=== PATIENT | male | born 1950 | race Caucasian/White ===

== ENCOUNTER → 2024-03-25 08:20 | Outpatient (REF) | payer BC, SELFPAY | LOC: HWRCS 08:20 | PROVIDERS: ATTENDING PHYSICIAN Internal Medicine Cardiovascular Disease; FAMILY PHYSICIAN Internal Medicine | DX: I35.0 Nonrheumatic aortic (valve) stenosis (principal) | CPT/HCPCS: 93306 ==

== ENCOUNTER → 2024-04-05 06:28 | Day surgery (SDC) | payer BC, SELFPAY | LOC: GI 06:28 | PROVIDERS: ATTENDING PHYSICIAN Internal Medicine Gastroenterology | DX: Z12.11 Encounter for screening for malignant neoplasm of colon (principal); D12.2 Benign neoplasm of ascending colon; K57.30 Diverticulosis of large intestine without perforation or abscess without bleeding; K64.8 Other hemorrhoids; Z79.01 Long term (current) use of anticoagulants | CPT/HCPCS: 45385; 88305 ==

== ENCOUNTER 2024-04-26 22:36 | Emergency (ER) | payer BC, SELFPAY ==
[2024-04-26 22:38] VITALS: BP 174/95
--- NOTE | 2024-04-27 01:55 | ED.GENMED ---
History of Present Illness
General
Chief Complaint: Skin Surface Trauma
Source: patient and spouse
Exam Limitations: none
Time Seen by Provider: 04/27/24 01:20
Nursing documentation reviewed up to this point in time: agreed with
History of Present Illness
History of Present Illness:
73-year-old male with past medical history of hypertension hyperlipidemia presenting to the emergency department today with concerns of a cut to his left middle finger that happened earlier in the day and has had intermittent bleeding secondary to
him taking Eliquis for paroxysmal atrial fibrillation. Denies additional concerns lightheadedness or large volume of bleeding.
Review of Systems
Review of Systems
Allergies reviewed?: Yes
All Other Systems: ROS reviewed and negative except as documented in HPI and ROS
Phy Exam
Physical Exam
Physical Exam:
GENERAL: Alert , in no apparent distress
EYE: pupils equal and reactive
NECK: Supple, no significant adenopathy.
ENT: o/p clr, mmm.
CARDIAC: Regular rate and rhythm .
LUNGS: Clear breath sounds bilaterally, no acute respiratory distress, no wheezes/rales/rhonchi
ABDOMEN: Soft, without focal tenderness, no r/g, no cvat
NEUROLOGICAL: Alert and oriented, no focal neuro deficits
SKIN: 1 cm laceration to the distal left. No active bleeding. No nailbed involvement warm and dry, skin intact.
MUSCULOSKELETAL: No edema, well perfused.
PSYCH: Normal and appropriate interaction.
Course
Orders/Labs/Results
Orders:
Orders
04/27/24 01:55
Tetanus/Diphth/Acelpertussis [Adacel] 0.5 ml IM .ONCE ONE
Vital Signs
Initial and Last Documented VS:
Initial Vital Signs
Temp Pulse Resp BP Pulse Ox
98.0 F 69 19 174/95 94
04/26/24 22:38 04/26/24 22:38 04/26/24 22:38 04/26/24 22:38 04/26/24 22:38
Last Documented Vital Signs
Temp Pulse Resp BP Pulse Ox
98.0 F 69 19 174/95 94
04/26/24 22:38 04/26/24 22:38 04/26/24 22:38 04/26/24 22:38 04/26/24 22:38
Procedures
Laceration Closure
Left Distal Third Finger:
Status of Wound: clean
Size of Wound in cm: 1
Description of Wound Edges: sharp
Preparation: cleaned with saline
Anesthesia: 1% Lidocaine and Digital-Regional
Revision/Debridement: routine- no revision and irrigate-direct pressure
Wound exploration: explored to base- no FB and no tendon involvement
Type of Closure: single layer closure
Skin Closure Material: 4-0 chromic gut
Number of sutures: 2
MDM/Problems Addressed
MDM/Problems Addressed:
73-year-old male presenting to the emergency department today with concerns of a small laceration to the distal. His concern is that the bleeding has been ongoing since the laceration occurred secondary to being on Eliquis. Concerning this was
this was cleaned thoroughly and sutured with 2 stitches to keep this in place and not continually bleed.
*Critical Care Note
Total Time (30-74mins, 75-104mins- exclusive of procedures): Not Applicable
ED Attending Note
-
Portions of this chart may have been created with voice recognition software.� Occasional wrong word or��sound alike� substitutions may have occurred due to the inherent limitations of voice recognition software.
Discharge Plan
Departure
Patient Disposition: Home (Routine Discharge)
Date of Disposition: 04/27/24
Time of Disposition: 01:56
Patient with high blood pressure during this ER visit?: No
Condition: Good
Covid-19: Not Applicable
Discharge Problem:
Finger laceration
Instructions: Laceration Repair With Stitches (DC)
Prescriptions:
No Action
atorvastatin 10 mg Tablet
10 mg PO DAILY
ramipril 5 mg Capsule
5 mg PO DAILY
metoprolol tartrate 25 mg tablet
25 mg PO BID Qty: 60 0RF
Eliquis 5 mg tablet
5 mg PO BID Qty: 60 0RF
Referrals:
Abiodun Xiong I., DO [Family Provider] -
Activity Restrictions/Additional Instructions:
You came to the emergency department today for concerns of a laceration to your left middle finger. This was sutured with 2 absorbable stitches. Please keep the area clean and covered. Return to the emergency department for any worsening, new or
concerning symptoms.
Discharge Date and Time
Print Language: BULGARIAN
[2024-04-27] MEDS: ADACEL 0.5 ML IM (02:05)
== END 2024-04-27 02:39 | disposition home or self-care (01) ==
LOC: EMR 22:36
PROVIDERS: EMERGENCY PHYSICIAN Emergency Medicine; FAMILY PHYSICIAN Internal Medicine
DX: S61.213A Laceration without foreign body of left middle finger without damage to nail, initial encounter (principal); W45.8XXA Other foreign body or object entering through skin, initial encounter; I10 Essential (primary) hypertension; I48.0 Paroxysmal atrial fibrillation; Z79.01 Long term (current) use of anticoagulants; E78.5 Hyperlipidemia, unspecified; Z23 Encounter for immunization
CPT/HCPCS: 99282; 12001; 90471; 90715

== ENCOUNTER → 2024-09-03 08:21 | Outpatient (REF) | payer MEDICARE, OTHER, SELFPAY | LOC: RCS 08:21 | PROVIDERS: ATTENDING PHYSICIAN Internal Medicine Cardiovascular Disease; FAMILY PHYSICIAN Internal Medicine | DX: I35.0 Nonrheumatic aortic (valve) stenosis (principal) | CPT/HCPCS: 93306 ==

== ENCOUNTER 2024-09-20 06:30 | Day surgery (SDC) | payer MEDICARE, OTHER, SELFPAY ==
[2024-09-20] VITALS (11 sets, daily range): BP systolic 128–164; BP diastolic 74–96; BMI 28.1
[2024-09-20 07:13] LABS: Hematocrit 38.6 % (39.0-52.0); Hemoglobin 13.3 g/dL (13.0-18.0); Mean Corp Hgb Conc. 34.5 g/dL (33.0-37.0); Mean Corpuscular Hgb 32.7 pg (27.0-31.0); Mean Corpuscular Volume 94.8 fL (80.0-94.0); Mean Platelet Volume 9.7 fL (7.4-10.4); Platelet Count 171 10^3/uL (130-400); Red Blood Cell Count 4.07 10^6/uL (4.70-6.10); Red Cell Dist. Width 13.2 % (11.5-14.5); White Blood Cell Count 5.5 10^3/uL (4.8-10.8)
[2024-09-20] MEDS: LOW STRENGTH ASPIRIN 81 MG PO (07:20)
[2024-09-20 07:28] LABS: ALT (SGPT) 28 U/L (0-50); AST (SGOT) 26 U/L (17-59); Albumin 4.3 g/dl (3.5-5.0); Alkaline Phosphatase 57 U/L (38-126); Blood Urea Nitrogen 18 mg/dl (9-20); Calcium 9.3 mg/dl (8.4-10.2); Carbon Dioxide 28 mmol/L (22-30); Chloride 104 mmol/L (98-107); Estimated Creatinine Clearance 81 ml/min; Glucose 102 mg/dl (70-99); Potassium 4.2 mmol/L (3.5-5.1); Sodium 142 mmol/L (135-145); Total Bilirubin 0.7 mg/dl (0.2-1.3); Total Protein 6.7 g/dl (6.3-8.2); eGFR > 60.00
[2024-09-20 08:41] LABS: ACT-LR - POC 240 Seconds (116-155)
--- NOTE | 2024-09-20 09:16 | ITS.CL.CATH ---
Engine Installer - Catheterization
Cardiac Catheterization
Procedure Report:
LEFT HEART CATHETERIZATION
Date of Procedure: September 20, 2024
Referring: Dr. Saurav Dumont
PROCEDURES:
1. Coronary angiography
2. Hemodynamic assessment of LAD with a [place] Omni wire. The iFR measures above the ischemic threshold.
INDICATION: Severe symptomatic aortic stenosis
ACCESS: Right radial artery, 6 Somali sheath
HEMODYNAMICS : (mmHg)
AO (s/d) : 116/73
CORONARY FINDINGS
DOMINANCE: Left
LEFT MAIN: Normal
LEFT ANTERIOR DESCENDING: The LAD arises normally from the left main and runs in the anterior interventricular groove. The first diagonal branch arises from the proximal one third of the LAD and has a 70% ostial stenosis. The LAD has a 40%
stenosis near the origin of the diagonal branch and the remainder of the LAD has only minor irregularities. The distal vessel wraps completely around the apex. The iFR in the LAD measured above the ischemic threshold at 0.96, 0.96, and 0.95
CIRCUMFLEX: The circumflex is a large-caliber dominant vessel supplying 2 small obtuse marginal branches, a large third obtuse marginal branch as it continues in the AV groove to supply a large posterolateral branch and PDA
RIGHT CORONARY ARTERY: Nondominant
HEMODYNAMIC ASSESSMENT OF THE LAD WITH A V[place]O OMNI WIRE: The origin of the left main was cannulated with a 6 Fr JL 4 guide catheter. Intravenous heparin was administered and the ACT was followed during the procedure. Two hundred micrograms of
intracoronary nitroglycerin was given through the guide catheter. A [place] Omni wire was advanced to the guide catheter tip and normalized to guide catheter pressure. The Omni wire was then carefully manipulated across the stenosis in the
stenosis in the mid LAD near the origin of the first diagonal branch and the iFR serially measured above the ischemic threshold at 0.96, 0.96, and 0.95. The Omni wire was withdrawn to the guide catheter and the resting Pd/Pa measured 1.0 confirming
no baseline drift
RADIATION SUMMARY: Fluoro Time (min): 5.9, Dose (mGy): 394, DAP (Gy.cm2) : 29.3
Closure Device: TR band
CONCLUSIONS
1. Coronary artery disease: The only angiographically significant stenosis was at the origin of a small first diagonal branch where a 70% stenosis was noted. The major epicardial coronary arteries had no significant coronary disease including the
LAD with the iFR measuring serially above the ischemic threshold and the dominant circumflex.
RECOMMENDATIONS
1. Continued medical management and risk factor modification. I would increase atorvastatin from 10 mg to 40 mg with goal LDL closer to 70mg/dl given coronary artery disease near the ostia of the first diagonal branch (medical therapy)
Copy to: Dr. Saurav Dumont
--- NOTE | 2024-09-20 11:39 | CONSULT.STRU ---
Consultation
-
Date/Time Consultation Requested: 09/20/2024
Date/Time Consultation Performed: 09/20/2024
Requesting Provider: Dr. Wilfredo Mello
Performing Provider: REINIER Haro
Reason for Consultation: Aortic stenosis/ TAVR evaluation
Patient History
Physicians
Family Physician: Dr. Xiong
Outpatient Sand Mill Operator Core Sand: Dr. Dumont
Primary Sand Mill Operator Core Sand: Dr. Dumont
History of Present Illness
Mr. Georges is a very pleasant 74yo male who remains very active. He states over the past year after walking about 15 minutes he begins to experience DRISCOLL and chest pain. This resolves with rest. His echocardiogram on 09/06/2024 was notable for EF:
55-60%, AV PG/M/55, SHANIQUA: 0.6, no AI, mild MR, mild TR. Cardiac cath today showed the only angiographically significant stenosis was at the origin of a small first diagonal branch where a 70% stenosis was noted. The major epicardial coronary
arteries had no significant coronary disease including the LAD with the iFR measuring serially above the ischemic threshold and the dominant circumflex.
Reviewed the pathophysiology of aortic stenosis with the patient.. Explained the treatment options of SAVR and TAVR. Explained the TAVR evaluation process including follow up BMP, CT TAVR scan, CT surgery consult and Heart Team discussion. Provided
with script for BMP next week, script and appointment for CT TAVR, Consult appointment with Dr. Cruz and a copy of the TAVR education booklet with contact information. Allowed for and answered questions.
Past Medical History
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
Past Surgical History
Past Surgical History: Tonsilectomy and Other (vocal cord biopsy)
Dental History
Regular dental care- Dr. Saleh ([facility])
Family History
Mother: at Age (92yo)
Father: at Age (94yo)
Social History
Alcohol: Daily (wine/cocktail)
Drug: None
Tobacco: Former Smoker (quit 2013)
Personal:
Living: With Spouse
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
Allergies
Allergy/AdvReac Type Severity Reaction Status Date / Time
No Known Allergies Allergy Verified 09/20/24 07:09
Home Medications
�Medication �Instructions �Recorded �Confirmed �Type
apixaban 5 mg tablet (Eliquis) 5 mg PO BID #60 tabs 06/02/23 09/20/24 Rx
metoprolol tartrate 25 mg tablet 25 mg PO BID #60 tabs 06/02/23 09/20/24 Rx
ramipril 5 mg capsule 5 mg PO DAILY 06/02/23 09/20/24 History
Eu Natural Uric Acid Purge 1 cap PO BID 09/20/24 09/20/24 History
ascorbic acid (vitamin C) 500 mg 500 mg PO BID 09/20/24 09/20/24 History
tablet (Vitamin C)
atorvastatin 40 mg tablet 40 mg PO DAILY #90 tabs 09/20/24 Rx
cholecalciferol (vitamin D3) 50 50 mcg PO DAILY 09/20/24 09/20/24 History
mcg (2,000 unit) tablet (Vitamin
D3)
krill 500 mg-omega-3 110 mg-dha 28 1 cap PO DAILY 09/20/24 09/20/24 History
mg-epa 60 [id number] capsule
STS%
STS %: 0.777%
Review of Systems
-
History Source: Patient
General: Reports No Symptoms
HEENT: Reports No Symptoms
Respiratory: Reports DRISCOLL; Denies Cough, Asthma or PND
Cardiac: Reports Chest Pain, CAD and Palpitations (h/o afib); Denies Edema
Abdomen/GI: Reports Reflux (occasional); Denies Abdominal Pain, Indigestion, Nausea or Vomiting
: Denies No Symptoms, Dysuria or Hematuria
Musculoskeletal: Reports No Symptoms; Denies Joint Pain or Edema
Skin: Reports No Symptoms
Neurological: Reports No Symptoms; Denies CVA, TIA, Headaches or Syncope
Vascular: Reports No Symptoms
Physical Exam
Vital Signs
Temp 97.3 F 09/20/24 06:35
Temp route: Temporal 09/20/24 06:35
Pulse 52 09/20/24 09:30
Resp Rate 10 09/20/24 09:30
Blood pressure 128/76 09/20/24 09:30
Blood pressure extremity used: Right upper arm 09/20/24 06:35
Position: Sitting 09/20/24 06:35
MAP (cuff-Fernanda Monitor) 88 09/20/24 09:30
SaO2 96 09/20/24 09:30
Oxygen Mode of Delivery Room air 09/20/24 06:35
Can the patient verbally communicate their pain? Yes 09/20/24 09:00
Actual Weight 93.8 kg 09/20/24 06:41
Body Mass Index (BMI) 28.1 09/20/24 06:41
Labs
09/20/24 07:07
09/20/24 07:07
Diagnostic Studies
Echocardiogram 09/06/2024:
CONCLUSIONS
1. Left ventricle: Normal size and function with an estimated ejection
fraction of 55-60%. Mild concentric hypertrophy. Stage I diastolic
dysfunction.
2. Right ventricle: Mild right ventricular hypertrophy
3. Atria: Normal
4. Mitral valve: Mild mitral regurgitation
5. Aortic valve: Severe aortic stenosis. The aortic leaflets are heavily
calcified. The peak and mean gradients are 89 and 55 mmHg respectively using
an LVOT diameter of 2.3 cm. The estimated aortic valve area is 0.6 cm2. No
aortic insufficiency
6. Tricuspid valve: Mild tricuspid regurgitation. The estimated pulmonary
artery systolic pressures are 23 mmHg
7. When compared to the most recent echocardiogram from 03/25/2024, the aortic
valve gradients have increased.
Indications:
NONRHEUMATIC AORTIC (VALVE) STENOSIS
Rhythm: Sinus
Portable Study: No
Technical Quality: Good
Contrast: None
BP: 40 / 84
PROCEDURE
A complete Transthoracic Echocardiogram was performed utilizing two-dimensional
evaluation with color flow and spectral Doppler analysis.
FINDINGS
Left Ventricle
Normal left ventricular chamber size. Normal left ventricular systolic
function. Normal regional wall motion. Mild concentric left ventricular
hypertrophy. Left ventricular ejection fraction is 55-60% by Talley's method
of discs. Stage I diastolic dysfunction suggestive of abnormal relaxation.
Right Ventricle
Mild RVH. Normal right ventricular size and function.
Left Atrium
Indexed LA volume is within normal range (15-34 mL/m2).
Right Atrium
Normal right atrium.
Mitral Valve
Thickened mitral valve leaflets. Mitral annular calcification. Mitral valve
opens normally. Mild mitral regurgitation.
Aortic Valve
Thickened aortic valve with restricted leaflet motion. Severe aortic stenosis.
Peak/mean gradients obtained from the right sternal border across the aortic
valve are 89/55 mmHg respectively. Using an LVOT diameter of 2.3 cm., the
aortic valve by the Continuity equation is calculated at 0.6 cm2. No aortic
regurgitation is seen.
Tricuspid Valve
Tricuspid valve opens normally. Mild tricuspid regurgitation. Estimated
pulmonary artery pressure of 23 mmHg assuming a right atrial pressure of 3
mmHg.
Pulmonic Valve
Pulmonic valve opens normally. Trace pulmonic regurgitation.
Pericardium\\Pleura
No pericardial effusion.
Aorta
Mildly dilated aortic root with Sinus of Valsalva measuring 3.9 cm.
Other Finding
The IVC is of normal size and demonstrates normal respiratory variation.
Interatrial septum is intact with no evidence of shunting by color flow
Doppler. No intracardiac mass or thrombus formation seen.
MEASUREMENTS (Male / Female) Normal Values
2D ECHO
LV Diastolic Diameter PLAX 4.3 cm 4.2 - 5.9 / 3.9 - 5.3 cm
LV Systolic Diameter PLAX 2.7 cm
IVS Diastolic Thickness 1.3 cm 0.6 - 1.0 / 0.6 - 0.9 cm
LVPW Diastolic Thickness 1.3 cm 0.6 - 1.0 / 0.6 - 0.9 cm
LV Relative Wall Thickness 0.6
LVOT Diameter 2.3 cm
Aortic Root Diameter 2.9 cm
LA Systolic Diameter LX 3.7 cm 3.0 - 4.0 / 2.7 - 3.8 cm
LV Ejection Fraction MOD BP 59.6 % >= 55 %
LV Stroke Volume MOD BP 52.6 cm3
LV Cardiac Index MOD BP 1217.3 cm3/min
LV Stroke Volume MOD 4C 52.6 cm3
LV Stroke Volume 4C AL 56.2 cm3
LV Stroke Volume MOD 2C 43.4 cm3
LV Stroke Volume 2C AL 45.9 cm3
LA Area 4C View 15.5 cm2 <= 20 cm2
LA Length 4C 4.8 cm
LA Volume 38.1 cm3 18 - 58 / 22 - 52 cm3
LA Volume Index 29.6 cm3/m2 16 - 34 cm3/m2
Aorta at Sinotubular Diameter 2.6 cm
Ascending Aorta Diameter 3.3 cm
Aortic Arch Diameter 2.2 cm
Aorta at Sinuses Diameter 3.9 cm
M-MODE
AV Cusp Separation MM 1.0 cm
TAPSE 2.4 cm
DOPPLER
AV Peak Velocity 472.0 cm/s
AV Peak Gradient 89.1 mmHg
AV Mean Gradient 56.0 mmHg
AV Velocity Time Integral 113.0 cm
LVOT Peak Velocity 68.9 cm/s
LVOT Peak Gradient 1.9 mmHg
LVOT Velocity Time Integral 19.0 cm
LVOT Stroke Volume 78.8 cm3
LVOT Stroke Volume Index 36.5 ml/m2 empty
LVOT Cardiac Index 1823.7 cm3/min\\m2
AV Area Cont Eq vti 0.7 cm2
AV Area Cont Eq pk 0.6 cm2
MV Area PHT 2.1 cm2
Mitral E Point Velocity 61.3 cm/s
Mitral A Point Velocity 70.3 cm/s
Mitral E to A Ratio 0.9
LV E' Lateral Velocity 6.1 cm/s
Mitral E to LV E' Lateral Ratio 10.1
LV E' Septal Velocity 5.3 cm/s
Mitral E to LV E' Septal Ratio 11.5
TR Peak Velocity 269.0 cm/s
TR Peak Gradient 28.9 mmHg
Exam
General: Well Developed, Well Nourished, No Apparent Distress and Comfortable
HEENT: Moist Mucous Membranes, PERRLA and EOMI
Neck: Trachea Midline
Respiratory: Clear; Negative Wheezes, Crackles or Rhonchi
Cardiac: S1/S2, Regular Rhythm and Murmur (Grade II/ systolic)
GI: Soft, Non Tender, Non Distended and Normal Bowel Sounds
Rectal: Deferred by Provider
Skin: Warm and Dry
Neuro: AO x 3 and No Motor Deficits
Extremities: Pulses (+2 pedal pulses); Negative Lower Level Edema
Psych: Calm
Assessment / Plan
-
Procedure Type:�Isolated AVR
PERIOPERATIVE OUTCOME ESTIMATE %
Operative Mortality 0.777%
Morbidity & Mortality 4.55%
Stroke 0.668%
Renal Failure 0.639%
Reoperation 2.91%
Prolonged Ventilation 1.72%
Deep Sternal Wound Infection 0.042%
Long Hospital Stay (>14 days) 2.22%
Short Hospital Stay (<6 days)* 57.1%
Severe Aortic stenosis:
����������� Continue evaluation for TAVR as outpatient
����������� BMP 09/27/2024 at [facility]
����������� CT TAVR scan 10/04/2024 at
����������� CT surgery consult with Dr. Cruz 10/07/2024
����������� Heart team discussion at [facility]
Dental Clearance
Non-obstructive CAD:
Heart healthy diet
Medical management per cardiology
Data Reviewed
-
EKG: Report Reviewed by me (Sinus radha, no conduction delays noted)
Millstone Cleaner: Discussed with Physician
Echo: Report Reviewed by me
Labs: Labs Reviewed by me
Old Records: Reviewed (Cardiology office notes)
Total Time Spent with Patient (in minutes): 25
Laboratory Results
-
09/20/24 07:07
09/20/24 07:07
Laboratory Results
Total Bilirubin 0.7 mg/dl (0.2-1.3) 09/20/24 07:07
AST 26 U/L (17-59) 09/20/24 07:07
ALT 28 U/L (0-50) 09/20/24 07:07
Alkaline Phosphatase 57 U/L (38-126) 09/20/24 07:07
Millstone Cleaner - Catheterization
Cardiac Catheterization
Procedure Report:
HEMODYNAMICS : (mmHg)
AO (s/d) : 116/73
CORONARY FINDINGS
DOMINANCE: Left
LEFT MAIN: Normal
LEFT ANTERIOR DESCENDING: The LAD arises normally from the left main and runs in the anterior interventricular groove. The first diagonal branch arises from the proximal one third of the LAD and has a 70% ostial stenosis. The LAD has a 40%
stenosis near the origin of the diagonal branch and the remainder of the LAD has only minor irregularities. The distal vessel wraps completely around the apex. The iFR in the LAD measured above the ischemic threshold at 0.96, 0.96, and 0.95
CIRCUMFLEX: The circumflex is a large-caliber dominant vessel supplying 2 small obtuse marginal branches, a large third obtuse marginal branch as it continues in the AV groove to supply a large posterolateral branch and PDA
RIGHT CORONARY ARTERY: Nondominant
HEMODYNAMIC ASSESSMENT OF THE LAD WITH A [place] OMNI WIRE: The origin of the left main was cannulated with a 6 Fr JL 4 guide catheter. Intravenous heparin was administered and the ACT was followed during the procedure. Two hundred micrograms of
intracoronary nitroglycerin was given through the guide catheter. A [facility] [facility] Omni wire was advanced to the guide catheter tip and normalized to guide catheter pressure. The Omni wire was then carefully manipulated across the stenosis in the
stenosis in the mid LAD near the origin of the first diagonal branch and the iFR serially measured above the ischemic threshold at 0.96, 0.96, and 0.95. The Omni wire was withdrawn to the guide catheter and the resting Pd/Pa measured 1.0 confirming
no baseline drift
RADIATION SUMMARY: Fluoro Time (min): 5.9, Dose (mGy): 394, DAP (Gy.cm2) : 29.3
Closure Device: TR band
CONCLUSIONS
1. Coronary artery disease: The only angiographically significant stenosis was at the origin of a small first diagonal branch where a 70% stenosis was noted. The major epicardial coronary arteries had no significant coronary disease including the
LAD with the iFR measuring serially above the ischemic threshold and the dominant circumflex.
RECOMMENDATIONS
1. Continued medical management and risk factor modification. I would increase atorvastatin from 10 mg to 40 mg with goal LDL closer to 70mg/dl given coronary artery disease near the ostia of the first diagonal branch (medical therapy)
== END 2024-09-20 12:25 | disposition home or self-care (01) ==
LOC: CATH 06:30
PROVIDERS: ATTENDING PHYSICIAN Internal Medicine Interventional Cardiology; FAMILY PHYSICIAN Internal Medicine; OTHER PHYSICIAN Internal Medicine Cardiovascular Disease
DX: I25.119 Atherosclerotic heart disease of native coronary artery with unspecified angina pectoris (principal); I08.3 Combined rheumatic disorders of mitral, aortic and tricuspid valves; I48.0 Paroxysmal atrial fibrillation; Z85.21 Personal history of malignant neoplasm of larynx; E78.00 Pure hypercholesterolemia, unspecified; K21.9 Gastro-esophageal reflux disease without esophagitis; I10 Essential (primary) hypertension; R06.09 Other forms of dyspnea; Z92.3 Personal history of irradiation; Z87.891 Personal history of nicotine dependence; Z79.01 Long term (current) use of anticoagulants; Z79.899 Other long term (current) drug therapy
CPT/HCPCS: 93799; 80053; 85027; 85347; 93454; C1769; C1894; Q9967

== ENCOUNTER → 2024-10-04 09:27 | Outpatient (REF) | payer MEDICARE, OTHER, SELFPAY | LOC: RAD 09:27 | PROVIDERS: ATTENDING PHYSICIAN Nurse Practitioner Adult Health; FAMILY PHYSICIAN Internal Medicine | DX: I35.0 Nonrheumatic aortic (valve) stenosis (principal) | CPT/HCPCS: 74174; 75572; Q9967 ==

== ENCOUNTER 2024-11-04 07:36 | Inpatient (IN) | payer MEDICARE, OTHER, SELFPAY ==
[2024-11-01 12:03] VITALS: BMI 29.2
[2024-11-01 12:47] LABS: % Basophils 0.9 % (0-2); % Eosinophils 6.6 % (0-6); % Immature Granulocytes 0.5 % (0-0.5); % Lymphocytes 22.2 % (20.5-51.1); % Monocytes 9.8 % (1.7-9.3); Absolute Basophils 0.1 10^3/uL (0-0.2); Absolute Eosinophils 0.4 10^3/uL (0-0.7); Absolute Lymphocytes 1.5 10^3/uL (1.2-3.4); Absolute Monocytes 0.6 10^3/uL (0.1-0.6); Absolute Neutrophils 3.9 10^3/uL (1.4-6.5); Hemoglobin 13.6 g/dL (13.0-18.0); Mean Corpuscular Hgb 32.5 pg (27.0-31.0); Mean Corpuscular Volume 95.5 fL (80.0-94.0); Mean Platelet Volume 9.9 fL (7.4-10.4); Nucleated Red Blood Cells % 0 % (-); Platelet Count 174 10^3/uL (130-400); Red Blood Cell Count 4.19 10^6/uL (4.70-6.10); Red Cell Dist. Width 13.4 % (11.5-14.5); White Blood Cell Count 6.5 10^3/uL (4.8-10.8)
[2024-11-01 12:58] LABS: ALT (SGPT) 39 U/L (0-50); AST (SGOT) 31 U/L (17-59); Albumin 4.5 g/dl (3.5-5.0); Alkaline Phosphatase 70 U/L (38-126); Blood Urea Nitrogen 16 mg/dl (9-20); Calcium 9.3 mg/dl (8.4-10.2); Carbon Dioxide 32 mmol/L (22-30); Chloride 101 mmol/L (98-107); Direct Bilirubin 0.1 mg/dl (0.0-0.4); Estimated Creatinine Clearance 71 ml/min; Glucose 100 mg/dl (70-99); PT 13.7 Sec (11.4-14.6); Potassium 4.7 mmol/L (3.5-5.1); Sodium 136 mmol/L (135-145); Total Bilirubin 0.9 mg/dl (0.2-1.3); eGFR > 60.00
[2024-11-01 12:59] LABS: APTT 40.1 Sec (23.4-35.0)
[2024-11-01 13:06] LABS: NT-proBNP 302 pg/ml
[2024-11-01 14:31] LABS: Glycohemoglobin (HgbA1c) 5.2 % (4.0-5.6)
[2024-11-01 14:46] LABS: Urine Albumin Negative (Neg - Trace); Urine Bilirubin Negative (Negative); Urine Character Clear (Clear); Urine Color Yellow; Urine Glucose Negative (Negative); Urine Ketone Negative (Negative); Urine Leukocyte Negative (Negative); Urine Nitrite Negative (Negative); Urine Occult Blood Negative (Negative); Urine Urobilinogen Negative (Neg - 1+)
--- NOTE | 2024-11-01 15:01 | CM ---
spoke to pt in PAT's, we discussed preop TAVR teaching including driving and lifting restrictions, he lives with his in a 2 story home with 3 steps to enter. he has the TAVR educ book, soap and instuctions, he is agreeable to a f/u visit from
the ct transitional care nurse after dc. cm role explained and all questions answered.
[2024-11-04] VITALS (26 sets, daily range): BP systolic 128–203; BP diastolic 76–103; BMI 28.7
--- NOTE | 2024-11-04 08:53 | CM ---
Patient in OR today for planned TAVR procedure.
Noted initial assessment. Pt. comes from home w/ spouse. He is functionally indep. w/ baseline w/ ADLs, mobility.
Antic. DC to home w/ CT Transitional Care RN.
CM to follow.
--- NOTE | 2024-11-04 10:14 | W.CVOR.SURPR ---
CVOR Surgeon Immed Pre Op
-
I have examined this patient prior to performance of the scheduled procedure.
The patient's condition is unchanged from the time of the dictated/written History and
Physical and the patient is able to undergo the scheduled procedure.
TF TAVR
Full Resue
[2024-11-04 11:19] LABS: ACT-LR - POC 303 Seconds (116-155)
[2024-11-04 11:34] LABS: ACT-LR - POC 314 Seconds (116-155)
[2024-11-04 11:56] LABS: ACT-LR - POC 318 Seconds (116-155)
--- NOTE | 2024-11-04 12:30 | W.PN.CT.SURG ---
CT Surgery Operative Note
-
OPERATIVE REPORT
Preoperative Diagnosis: Severe aortic valve stenosis, symptomatic
Postoperative Diagnosis: Same
Procedure(s) Performed: Right trans femoral TAVR with a 29 mm nominal Mcqueen Resilia TAVR valve with balloon valvuloplasty
Date of Procedure: 11/04/2024
Comorbidities:
1. Severe aortic stenosis, symptomatic
2. History of vocal cord cancer status post radiation
3. Hypertension
4. Hyperlipidemia
5. Atrial fibrillation
6. History of tobacco abuse
7. Depression/anxiety
Cardiac Surgeon: Yash Cruz MD, MS
Coiled Tubing Supervisor: Mel English MD
Anesthesia: Conscious Sedation and Local Analgesia
EBL: 150cc
Products: none
Implant: 29mm MCQUEEN Resilia TAVR Valve, SN: [id number]
Indication(s) for Procedures: 74-year-old male with symptomatic severe aortic stenosis. CT-TAVR protocol revealed acceptable anatomy for TAVR access and implantation. Patient was evaluated by both cardiac surgery and interventional cardiology who
all deemed this patient appropriate for transcatheter intervention.
Start time: 1043hrs
Deployment time: 1202hrs
End time: 1220hrs
Radiation Dose (mGy): 1305.77
DAP (cm2.Gy): 116.16
Fluoroscopy time (minutes): 45.7
Contrast volume (ml): 80
TAVR gradient (mmHg): 4-5mmHg
Protamine Dose: 40mg
Final Valve Positionin/10
LVEPD (mmHg): 25
Findings: Preoperative LVEF was 60% and was 60% following TAVR without inotropic support. Function was overall normal without regional wall motion abnormalities or dyskinesia. The aortic valve was well seated with trace detectable PVL and mean
gradient across the new valve was 4-5 mmHg. initially coming off of pacing he had a left bundle branch block that seemed to resolve by the conclusion of the case at which point he regained sinus rhythm and so the temporary pacing wire was removed.
Of note we had a very difficult time crossing his valve as it was also quite horizontal. This required exchanging of multiple catheters as well as wires and ultimately was able to cross with an AL 2 catheter with a straight wire. Given the degree
of stenosis in the difficulty in crossing the valve, we elected to perform a balloon valvuloplasty with an 18 damián under rapid pacing. Also of note in order to cross the valve and required rapid pacing at 100 bpm. There was successful placement of
29 mm nominal Mcqueen Resilia TAVR valve without acute complications.
Access:
1. Device -right common femoral artery, perclose x 2 [+ 8Fr angioseal]
2. Pigtail -left radial with TR band
3. Transvenous Pacer -left common femoral vein
Description of Procedure: The patient was taken to the laborer plumbing. Their identity and procedure to be performed were verified and they were positioned supine on the laborer plumbing table. Induction via conscious sedation. The patient was then prepped and
draped from chin to thigh in a sterile fashion. A preoperative time-out was performed with all members of the team present. Arterial and venous access was performed using fluoroscopy and ultrasound guidance with micropuncture and Seldinger
technique. Two perclose devices were used on the device side followed by access to the aorta with a stiff wire to facilitate E-sheath placement. Heparin was given. A stiff straight wire and AL-1 catheter was used to cross the aortic valve. This
initially did not work and given the tortuosity of his aorta, we had to exchange first to a JR4 then and MPA and finally an AL-2 and was able to cross under pacing at 100BPM. The stiff wire was exchanged for a J-wire with the catheter exchanged for
a pigtail. An LVEDP was measured here. The valve was prepped and mounted on to the device carrier. An ACT of >250 was achieved. We verified x 3 that the valve was mounted in the correct orientation with the skirt of the valve directed toward the
tip of the device carrier. The stiff wire was then placed via the pigtail catheter into the LV. Given the difficulties across the valve, a balloon valvuloplasty was performed with an 18 Janine under rapid pacing at 180 bpm. We advanced the device
into the descending thoracic aorta where the valve was them mounted onto the balloon under fluoroscopy. The device was flexed and advanced over the arch into the root and positioned across the aortic valve. Contrast fluoroscopy was used to visualize
the prosthesis across the valve and to guide positioning. A pigtail catheter in the RCC as used as a guide. We aimed to have the bottom of the device marker at the annular hinge point. The device sheath was pulled back. We performed a quick
pre-deployment time out. The pacer was turned on and had capture. Blood pressure fell accordingly, angiography was done to verify the intended final placement and the valve was deployed with 5 seconds of rapid pacing to nominal volume. The balloon
was deflated and the pacer was turned off. We had recovery of vitals. The device carrier was unflexed and positioned back in the descending thoracic aorta. A transthoracic echocardiogram was performed. The device was removed from the E-Sheath
maintaining wire access followed by removal of the E-sheath as we cinched down the perclose devices. One of the Perclose's failed and so a third Perclose device was placed and even then we required an 8 Vietnamese Angio-Seal in order to obtain
appropriate hemostasis. The pigtail was advanced into the descending/abdominal and completion aortogram with runoff run-off angiography was performed. There was no stenosis or dissection of the right ileofemoral system. There was acceptable
hemostasis of bilateral groins and manual pressure was held following wire removal. Low dose protamine was administered after checking another ACT.
All instrument, sponge, and needle counts were confirmed to be correct x 2 at the end of the operation. The patient was transferred to the cardiac intensive care unit in stable condition.
I, Dr. Yash Cruz, was present, scrubbed for, and performed all critical elements of this procedure.
Yash Cruz MD
Cardiothoracic Surgeon
[facility]
This operative dictation was created using the [employer] dictation system. Please excuse any grammatical, typographical, or 'sound alike' errors
--- NOTE | 2024-11-04 14:42 | PTCARENOTE ---
Addendum entered by Camille Finch RN 11/04/24 19:23:
Left femoral site w/ dressing clean, dry and intact.
Original Note:
Received pt post TAVR. VSS. Right femoral dressing w/ old drainage noted and marked. Left radial site w/ R band intact. Neuro checks done, GCS 15. Pt c/o 2 out of 10 chest pressure. EKG obtained. PA notified. Will monitor.
[2024-11-04] MEDS: ANCEF 5 IV (18:36)
[2024-11-04] MEDS: ANCEF 10 IV ×2 (18:36)
[2024-11-04] MEDS: DILAUDID 1 MG IV (21:25)
--- NOTE | 2024-11-04 22:39 | W.PN.UPDATE ---
Update Note
Progress Note Update
Subjective/Objective:
I saw Mr. Garcia earlier in the shift while he was sitting in a recliner on routine PM rounds. R and L groin access sites (Device -right common femoral artery, perclose x 2 [+ 8Fr angioseal], Transvenous Pacer -left common femoral vein) were soft
and without bruising. Later his RN notified me that he was having extreme pain in the left groin. I went to examine him and he had a 3-4' diameter area of painful induration in the L groin surrounding the gauze. SBP at this time was above 200
mmHg with HR 90. I applied manual pressure and he required IV pain medicine in order to tolerate the applied pressure at the site. After pain meds his BP came down to 140/87 with Hr 75. We subsequently applied a fem stop to the area, had +2 DP
pulses in LLE after fem stop applied. After I discussed with the gas station manager vascular surgeon he was transported for a CTA with runoff. Dr. Cruz and Dr. English were also notified in real time. Preliminary CT results showing contrast extravasation
within a hematoma in the left groin. Dr. Dinero with vascular reviewed images and planned to call in the OR team for emergent intervention. CBC drawn, showing 2 g drop from prior.
Assessment:
Arterial bleeding
L groin hematoma
Acute blood loss anemia
Plan:
Vascular team called in, to OR now
No indication for empiric transfusion or coagulopathy reversal at present
Pain control, goal SBP < 140 mmHg until site secure
Critical care time = 60 minutes (CPT 76197)
Dr. Cruz and Dr. English aware
[2024-11-04 22:40] LABS: Hematocrit 33.4 % (39.0-52.0); Hemoglobin 11.6 g/dL (13.0-18.0); Mean Corp Hgb Conc. 34.7 g/dL (33.0-37.0); Mean Corpuscular Hgb 32.1 pg (27.0-31.0); Mean Corpuscular Volume 92.5 fL (80.0-94.0); Mean Platelet Volume 9.4 fL (7.4-10.4); Platelet Count 118 10^3/uL (130-400); Red Blood Cell Count 3.61 10^6/uL (4.70-6.10); Red Cell Dist. Width 13.1 % (11.5-14.5)
[2024-11-04 22:45] LABS: PT 13.7 Sec (11.4-14.6)
[2024-11-04 22:46] LABS: APTT 27.5 Sec (23.4-35.0)
[2024-11-04 22:47] LABS: Lactic Acid 1.4 mmol/L (0.7-2.0)
[2024-11-04 22:50] LABS: Blood Urea Nitrogen 20 mg/dl (9-20); Calcium 8.7 mg/dl (8.4-10.2); Carbon Dioxide 23 mmol/L (22-30); Chloride 99 mmol/L (98-107); Estimated Creatinine Clearance 90 ml/min; Glucose 160 mg/dl (70-99); Potassium 3.7 mmol/L (3.5-5.1); Sodium 130 mmol/L (135-145); eGFR > 60.00
--- NOTE | 2024-11-04 23:07 | CON.VAS ---
Medical History
-
Chief Complaint: Left Groin Expanding Hematoma
Past Medical History
Past Medical History: CAD, HTN and Hypercholesterolemia
Past Surgical History: Other (TAVR)
Allergies / Home Medications
Allergy/AdvReac Type Severity Reaction Status Date / Time
No Known Allergies Allergy Verified 11/04/24 07:39
�Medication �Instructions �Recorded �Confirmed �Type
apixaban 5 mg tablet (Eliquis) 5 mg PO BID #60 tabs 06/02/23 11/04/24 Rx
metoprolol tartrate 25 mg tablet 25 mg PO BID #60 tabs 06/02/23 10/28/24 Rx
ramipril 5 mg capsule 5 mg PO DAILY 06/02/23 10/28/24 History
ascorbic acid (vitamin C) 500 mg 500 mg PO BID 09/20/24 10/28/24 History
tablet (Vitamin C)
atorvastatin 40 mg tablet 40 mg PO DAILY #90 tabs 09/20/24 10/28/24 Rx
cholecalciferol (vitamin D3) 50 50 mcg PO DAILY 09/20/24 10/28/24 History
mcg (2,000 unit) tablet (Vitamin
D3)
Purge Uric Acid Flush Supplem 1 cap PO BID 10/28/24 10/28/24 History
aspirin 81 mg chewable tablet 81 mg PO DAILY 11/02/24 11/02/24 History
krill oil 500 mg capsule 500 mg PO DAILY 11/02/24 11/02/24 History
vitamin B complex 1 cap PO DAILY 11/02/24 11/02/24 History
Physical Exam
Vital Signs
Temp Pulse Resp BP Pulse Ox
98.4 F 63 18 155/81 98
11/04/24 18:55 11/04/24 19:15 11/04/24 18:55 11/04/24 18:55 11/04/24 18:55
Lab Results
11/04/24 22:25
11/04/24 22:25
Kut-O-Oiajxquypag Pept 302 pg/ml 11/01/24 12:12
Physical Exam
General: Well Developed and Well Nourished
HEENT: Normocephalic
Respiratory: Clear
Cardiac: S1/S2
GI: Soft
Musculoskeletal: No Clubbing
Skin: Warm
Neuro: Awake
Pulses: Left Femoral: +2 (hematoma), Right Femoral: +2, Left Dorsalis Pedis: +2 and Right Dorsalis Pedis: +2
Assessment / Plan
-
74M hx of TAVR POD 0 with Left CFV access now with expanding L groin hematoma. CTA shows active extravasation likely from L epigastric
-Emergent OR for hemorrhage control. Anatomy not ammenable to covered stent 2/2 to location
-discussed with CT team
[2024-11-04] MEDS: LOPRESSOR PO (23:42)
[2024-11-05] VITALS (25 sets, daily range): BP systolic 129–185; BP diastolic 46–94; PULSE 75; O2SAT 96–100; BMI 29.0
--- NOTE | 2024-11-05 00:05 | OR.RPT ---
CT Surgery Operative Note
-
Pre-op Diagnosis: Left Groin Hemorrhage
Post-op Diagnosis: Same
Procedure: Left Groin Exploration, Control of Hemorrhage
Primary Surgeon: William Dinero MD
Assisting Surgeons: None
Specimen: None
Cultures: None
Complications / Blood Loss: None / 15mL
Findings: Epigastric Artery Bleeding
Indications for Procedure: This is a 74M with a hx of TAVR POD 0 including a Left Groin CFV access. Patient noted to have expanding hematoma in left groin during hypertensive episode. CTA demonstrated active extravasation for epigastric vessel.
Given this finding, the patient was advised to go to the OR for control of hemorrhage.
Procedure: The patient was brought to the operating room and placed on the operating room table in supine postion. General anesthesia was induced with general anesthesia. The patient was then prepped and draped in the usual sterile fashion. A
surgical time out was performed. A standard longitudinal femoral artery exposure was performed. This was carried through the level of the subcutaneous tissue with electrocautery. Lymphatics were identified and ligated with 2-0 silk sutures. The
femoral sheath was then incised sharply. The inguinal ligament was retracted cephalad. Circumflex veins were not identified. This exposure demonstrated an actively bleeding epigastric vessel with surrounding hematoma. The vessel was ligated with
medium clips. This controlled the hemorrhage. The wound was irrigated. The incision was closed in multiple layers. 2-0 vicryl running for the femoral sheath followed by 2-0 interrupted for subcutaneous tissue and lymphatics. A 3-0 vicryl for the
subcutaneous and dermal layers followed by 4-0 monocryl. Dermabond was applied and all sponge, needle and instrument counts were correct at the end of the procedure.
[2024-11-05] MEDS: LOPRESSOR 25 MG PO ×2 (00:29→10:05)
--- NOTE | 2024-11-05 01:30 | W.PN.CT ---
Today's Communication / Plan
-
-POD #1 TAVR/ POD #0 epigastric artery ligation 2/2 bleed and hematoma
-holding Eliquis for now
-Bedrest for now
-follow CBC, no indication for transfusion
-no EKG changes post TAVR, follow tele
-continue atorvastatin, metoprolol, Altace. PRN labetalol for BP control after bleeding event
-greatly appreciate vascular surgery assistance, wound vac per vascular
Assessment / Plan
-
Severe s/p Right trans femoral TAVR with a 29 mm nominal Gomez Resilia TAVR valve with balloon valvuloplasty 11/04/24 POD#1 Dr. Nancy English
Echo: Peak/mean gradients across the aortic valve are 7/4 mmHg respectively. Trace aortic regurgitation.
L epigastric artery bleed with groin hematoma 11/05/24 POD #0 femoral cutdown and ligation/clips to epigastric artery Dr. Dinero
Hx vocal cord cancer
HTN
HLD
Afib on Eliquis
Depression
Tobacco use disorder
Acute blood loss anemia
Acute L groin hematoma
Poorly controlled HTN
Acute on chronic HFpEF (LVEDP 24 mmHg)
Subjective
-
Date of Service: November 05, 2024
Objective Data
-
PT 13.7 Sec (11.4-14.6) 11/04/24 22:25
INR 1.00 11/04/24 22:25
APTT 27.5 Sec (23.4-35.0) 11/04/24 22:25
Vital Signs
Vital Signs
Temp Pulse Resp BP Pulse Ox
97 F 74 16 180/80 99
11/05/24 00:36 11/05/24 01:15 11/05/24 00:48 11/05/24 00:57 11/05/24 00:57
CT Intake/Output/Weight
11/04/24 11/04/24 11/05/24
06:59 18:59 06:59
Intake Total 1000 / 1050 50 / 1050
Output Total 600 / 600
Balance 1000 / 450 -550 / 450
SaO2: 99
Physical Exam
-
General: Awake, Oriented and AOx3
Cardiovascular: Regular rate & rhythm, No Murmurs and No Rub
Respiratory: Clear and Equal
Incision: Clean, Dry, Intact and Other (wound vac to L groin noted)
Extremities: No Edema and Other (+2 DP LLE)
Data Reviewed
-
Lab Results: Results Reviewed
Medications: Active Meds Reviewed
Chest X-Ray: Report Reviewed
CT Scan: Report Reviewed and Image Reviewed
ECG: Report Reviewed
--- NOTE | 2024-11-05 03:00 | PTCARENOTE ---
Addendum entered by Gauri Lea RN 11/05/24 07:26:
Pt with left groin BERNARDO intact.
Addendum entered by Gauri Lea RN 11/05/24 03:38:
00:55 pt returned from OR post hematoma evacuation. AAOx3 left lower ext with positive pulses, warm to touch. Pt denies pain, but has some discomfort. Dsg clean and intact.
Addendum entered by Gauri Lea RN 11/05/24 03:01:
At CT Pt diaphoretic, c/o difficulty breathing. O2 applied PlOx 97%. Pt was able to tolerate CT
Original Note:
21:15 pt c/o left groin pain. Left groin swollen, hard, and painful to touch. CVPA notified, applied femostop, pt taken to STAT CTA.
[2024-11-05] MEDS: TYLENOL 650 MG PO ×3 (04:48→15:36)
[2024-11-05 05:09] LABS: Mean Corp Hgb Conc. 35.3 g/dL (33.0-37.0); Mean Corpuscular Hgb 32.5 pg (27.0-31.0); Mean Corpuscular Volume 92.1 fL (80.0-94.0); Platelet Count 119 10^3/uL (130-400); Red Blood Cell Count 3.69 10^6/uL (4.70-6.10); Red Cell Dist. Width 13.2 % (11.5-14.5)
[2024-11-05] MEDS: TRANDATE 10 MG IV (05:10)
[2024-11-05 05:33] LABS: Blood Urea Nitrogen 17 mg/dl (9-20); Calcium 8.9 mg/dl (8.4-10.2); Carbon Dioxide 24 mmol/L (22-30); Chloride 100 mmol/L (98-107); Estimated Creatinine Clearance 103 ml/min; Glucose 151 mg/dl (70-99); Sodium 133 mmol/L (135-145); eGFR > 60.00
--- NOTE | 2024-11-05 07:42 | W.PN.ANS.POP ---
Anesthesia Post Operative
- Anesthesia Post Op Note
Vital Signs Stable-See Nursing Note: Yes
Airway Patent: Yes
Adequate Pain Control: Yes
Change in Mental Status: No
Current Postoperative Nausea & Vomiting: No
Anesthesia Complications: No
General Anesthetic Recall: No
Unplanned Admission: No
Post Op Hydration Adequate: Yes
--- NOTE | 2024-11-05 07:47 | W.PN.VS ---
Addendum entered and electronically signed by Franky Horta III, MD 11/05/24 10:44:
This patient was seen and examined with REINIER Pennington. I agree with the history and physical exam as well as the assessment and plan.
Signed:
Franky Horta III, MD
[facility] Vascular Surgery
[phone] ([phone])
Original Note:
Today's Communication / Plan
-
Seen and assessed with Dr. Horta
Assessment/Plan
-
POD 1: Left Groin Exploration, Control of Hemorrhage
Plan:
-Continue jewel dressing today (can keep in place for up to 7 days)
-Okay to get out of bed/ambulate/PT
-Pain control
Subjective Data
-
Date of Service: November 05, 2024
Patient seen at bedside same Dr. Horta. Patient doing well overall. Mild to moderate pain to the left groin. Jewel dressing clean, dry, intact, flat, groin soft.
Objective Data
-
Vital Signs
Temp Pulse Resp BP Pulse Ox
98.6 F 85 20 151/84 96
11/05/24 07:42 11/05/24 05:46 11/05/24 07:42 11/05/24 05:46 11/05/24 07:42
Intake and Output
11/04/24 11/05/24 11/06/24
06:59 06:59 06:59
Intake Total 1849 / 1849
Output Total 600 / 600
Balance 1250 / 1250
Intake:
IV fluids (Total) 1849 / 1849
IVF from lab 1000 / 1000
normosol 850 / 850
Output:
Mychal Amado 600 / 600
Lab Results
11/05/24 04:45
11/05/24 04:45
Calcium 8.9 mg/dl (8.4-10.2) 11/05/24 04:45
Total Bilirubin 0.9 mg/dl (0.2-1.3) 11/01/24 12:12
Direct Bilirubin 0.1 mg/dl (0.0-0.4) 11/01/24 12:12
AST 31 U/L (17-59) 11/01/24 12:12
ALT 39 U/L (0-50) 11/01/24 12:12
Alkaline Phosphatase 70 U/L (38-126) 11/01/24 12:12
Total Protein 7.0 g/dl (6.3-8.2) 11/01/24 12:12
Albumin 4.5 g/dl (3.5-5.0) 11/01/24 12:12
Physical Exam
-
AAOx3
No tachypnea on room air
No tachycardia
Abdomen soft
Groin sites clean, dry, intact, flat, soft
Distal pulses +2 DPs bounding, feet warm and pink
--- NOTE | 2024-11-05 08:05 | PTCARENOTE ---
Assumed care of pt from prev nsg shift; Pt AAOX3 w/no c/o CP or SOB; Pt does c/o 2/10 L groin pain w/activity s/p hematoma evacuation last HS. Pt's VS stable w/HR in the 70's-80's & BP 159/63. Pt w/R groin site & L radial site w/dressings C/D/I. L
groin w/BERNARDO wound vac dressing C/D/I. Pt w/+pedals bilat. Pt assisted OOB to CH. Pt w/call galarza within reach & plan of care ongoing.
[2024-11-05] MEDS: LIPITOR 40 MG PO (10:05)
[2024-11-05] MEDS: VITAMIN D3 (cholecalciferol) 50 MCG PO (10:05)
[2024-11-05] MEDS: ALTACE 5 MG PO (10:05)
[2024-11-05] MEDS: THERAGRAN 1 TABLET PO (10:06)
[2024-11-05] MEDS: VITAMIN C 500 MG PO ×2 (10:06→20:42)
--- NOTE | 2024-11-05 11:25 | CM ---
Chart reviewed. Patient is independent of ADLS, lives with his in a 2 [address], 3 RAMOS, 0 DME. Plan is for the patient to return home with CT Transitional RN. CM to follow
--- NOTE | 2024-11-05 11:32 | W.PN.CARDCBS ---
Today's Communication / Plan
-
Well seated TAVR on echo
CTM on tele
Appreciate vascular surgery input
Impression / Plan
-
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
Severe s/p Right trans femoral TAVR with a 29 mm nominal Gomez Resilia TAVR valve with balloon valvuloplasty 11/04/24 POD#1 Dr. Nancy English
Echo: Peak/mean gradients across the aortic valve are 7/4 mmHg respectively. Trace aortic regurgitation.
L epigastric artery bleed with groin hematoma 11/05/24 POD #0 femoral cutdown and ligation/clips to epigastric artery Dr. Dinero
Hx vocal cord cancer
HTN
HLD
Afib on Eliquis
Depression
Tobacco use disorder
Acute blood loss anemia
Acute L groin hematoma
Poorly controlled HTN
Acute on chronic HFpEF (LVEDP 24 mmHg)
Plan:
-No cardiac complaints, resting comfortably in bed this AM
-L groin stable following cut down, appreciate vascular input
-QRS interval increase on post-procedure ECG, consider outpatient monitor on discharge, monitor on tele here
-TTE 11/05 with well seated TAVR
-Agree with current cardiac meds
-We will continue to follow with you
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
Subjective
Date of Service: November 05, 2024
NAOE. Resting comfortably. No CP or SOB. No LE edema.
Objective
Labs:
11/05/24 04:45
11/05/24 04:45
Labs
Hgb 12.0 g/dL (13.0-18.0) L 11/05/24 04:45
Hct 34.0 % (39.0-52.0) L 11/05/24 04:45
Plt Count 119 10^3/uL (130-400) L 11/05/24 04:45
PT 13.7 Sec (11.4-14.6) 11/04/24 22:25
INR 1.00 11/04/24 22:25
APTT 27.5 Sec (23.4-35.0) 11/04/24 22:25
Sodium 133 mmol/L (135-145) L 11/05/24 04:45
Potassium 4.0 mmol/L (3.5-5.1) 11/05/24 04:45
BUN 17 mg/dl (9-20) 11/05/24 04:45
Creatinine 0.7 mg/dL (0.7-1.3) 11/05/24 04:45
Glucose 151 mg/dl (70-99) H 11/05/24 04:45
Vital Signs and I&O:
Vital Signs
Temp Pulse Resp BP Pulse Ox
98.5 F 63 20 142/86 99
11/05/24 11:10 11/05/24 11:15 11/05/24 11:10 11/05/24 11:13 11/05/24 11:13
Vital Signs
Temp Pulse Resp BP Pulse Ox
98.5 F 63 20 142/86 99
11/05/24 11:10 11/05/24 11:15 11/05/24 11:10 11/05/24 11:13 11/05/24 11:13
Intake & Output
11/03/24 11/04/24 11/05/24 11/06/24
06:59 06:59 06:59 06:59
Intake Total 1850 / 1850
Output Total 600 / 600
Balance 1250 / 1250
Physical Exam
Physical Exam
Gen: NAD, AAOx3
HEENT: NC/AT, sclera anicteric
Neck: No JVD
CV: RRR, NL s1/s2, no M/R/G
Lungs: CTAB
Abd: S/ND
Ext: No LE edema, L groin CDI
Skin: Warm, dry
Neuro: Non-focal
--- NOTE | 2024-11-05 12:39 | PN.CDI ---
CDI
- -
CDI:
Physician Documentation Request
Admit Date: 11/04/24 07:36
Dear Doctor Cruz,
Patient admitted for TAVR,
Sodium results:
Laboratory Tests
11/01/24 11/04/24 11/05/24
12:12 22:25 04:45
Sodium 136 130 L 133 L
Could you please provide a diagnosis that supports the above alb abnormalities and additional evaluation/monitoring:
Hyponatremia
Abnormal lab value clinically insignificant
Other
Use of terms such as suspected, likely, concern for, or probable (associated with a specific diagnosis that is being evaluated, monitored, or treated as if it exists) are acceptable and can be coded in the inpatient setting, when documented at the
time of discharge.
Thank you,
Loida Salinas RN, BSN
CDI Specialist
tiger text
Please use your independent medical judgment in providing your response.
--- NOTE | 2024-11-05 13:07 | W.PN.UPDATE ---
Update Note
Progress Note Update
Rhythm star monitor to be placed at discharge for 2 weeks. Reviewed with the patient and his how to apply the monitor, charge it, report symptoms and return after the two weeks. Allowed for and answered questions. Monitor left at bedside.
[2024-11-05] MEDS: LOPRESSOR PO (20:39)
--- NOTE | 2024-11-05 21:37 | PTCARENOTE ---
Pt OOB HR dropped to 38 BPM and irregular. Pt denies lightheadedness or dizziness. EKG done and send to Dr. Bran, CVPA is aware. New order to hold Lopressor.
[2024-11-06] VITALS (7 sets, daily range): BP systolic 140–173; BP diastolic 71–107; BMI 28.3
--- NOTE | 2024-11-06 00:57 | PTCARENOTE ---
TAVR sites visualized with off going RN. L radial CDI- R fem- dressing wit old drainage- not outside of the marked area. L fem- Small old drainage marked without changes. BERNARDO drain in place
--- NOTE | 2024-11-06 05:06 | W.PN.CT ---
Today's Communication / Plan
-
-No major issues overnight. Neurologically and hemodynamically intact
-Pt dis have some rhythm changes c/w Antwankebach when on the toilet attempting to have a BM last night. Resolved shortly after getting back in bed. BB was held last night per Dr. Bran
-Rhythm is currently NSR with 1st deg HB @ 80 bpm
-Had a repeat echo yesterday, 11/05/24 which showed a well seated TAVR, PG/MG 16/9 mmHg, no AI, with hyperdynamic EF of 74%
-Groin is C/D/I without significant hematoma
-BERNARDO dressing intact, Vascular Surgery is following
-Eliquis currently on hold
-OOB into chair/Ambulate
-Home today with Rhythm Star heart monitor
Assessment / Plan
-
Severe s/p Right trans femoral TAVR with a 29 mm nominal Gomez Resilia TAVR valve with balloon valvuloplasty, by Dr. Cruz/Dr. English, 11/04/24, pod#2
Echo: Peak/mean gradients across the aortic valve are 7/4 mmHg respectively. Trace aortic regurgitation.
L epigastric artery bleed with groin hematoma 11/05/24 POD #1 femoral cutdown and ligation/clips to epigastric artery Dr. Dinero
Hx vocal cord cancer
HTN
HLD
Afib on Eliquis
Depression
Tobacco use disorder
Acute blood loss anemia
Acute L groin bleed/hematoma S/P ligation epigastric artery with clips, 11/05/24
Poorly controlled HTN
Acute on chronic HFpEF (LVEDP 24 mmHg)
Discussed patient care with: Cardiology, Nursing, Respiratory Therapy, Pharmacy and Care Team
Subjective
-
Date of Service: November 06, 2024
Objective Data
-
PT 13.7 Sec (11.4-14.6) 11/04/24 22:25
INR 1.00 11/04/24 22:25
APTT 27.5 Sec (23.4-35.0) 11/04/24 22:25
Vital Signs
Vital Signs
Temp Pulse Resp BP Pulse Ox
99.2 F 71 18 143/71 98
11/06/24 03:22 11/06/24 03:19 11/06/24 03:22 11/06/24 03:19 11/06/24 03:22
CT Intake/Output/Weight
11/05/24 11/05/24 11/06/24
06:59 18:59 06:59
Intake Total 850 / 1850 960 / 960
Output Total 600 / 600
Balance 250 / 1250 960 / 960
SaO2: 98 (RA)
Physical Exam
-
General: Awake, Oriented and AOx3
Cardiovascular: Regular rate & rhythm, No Murmurs and No Rub
Respiratory: Clear
Incision: Clean, Dry, Intact and Dressing Intact
Extremities: No Edema
Data Reviewed
-
Lab Results: Results Reviewed
Medications: Active Meds Reviewed
Chest X-Ray: Report Reviewed and Image Reviewed
ECG: Report Reviewed and Image Reviewed
[2024-11-06 05:59] LABS: Blood Urea Nitrogen 18 mg/dl (9-20); Calcium 8.8 mg/dl (8.4-10.2); Carbon Dioxide 30 mmol/L (22-30); Chloride 103 mmol/L (98-107); Estimated Creatinine Clearance 90 ml/min; Glucose 115 mg/dl (70-99); Hematocrit 30.7 % (39.0-52.0); Hemoglobin 10.5 g/dL (13.0-18.0); Magnesium 2.1 mg/dl (1.6-2.3); Mean Corp Hgb Conc. 34.2 g/dL (33.0-37.0); Mean Corpuscular Hgb 32.1 pg (27.0-31.0); Mean Corpuscular Volume 93.9 fL (80.0-94.0); Mean Platelet Volume 9.9 fL (7.4-10.4); Platelet Count 92 10^3/uL (130-400); Potassium 3.9 mmol/L (3.5-5.1); Red Blood Cell Count 3.27 10^6/uL (4.70-6.10); Red Cell Dist. Width 13.5 % (11.5-14.5); Sodium 139 mmol/L (135-145); White Blood Cell Count 12.4 10^3/uL (4.8-10.8); eGFR > 60.00
[2024-11-06] MEDS: LASIX 40 MG IV (08:24)
[2024-11-06] MEDS: KCL 20 MEQ PO (08:24)
[2024-11-06] MEDS: LIPITOR 40 MG PO (08:25)
[2024-11-06] MEDS: VITAMIN C 500 MG PO (08:25)
[2024-11-06] MEDS: VITAMIN D3 (cholecalciferol) 50 MCG PO (08:25)
[2024-11-06] MEDS: ALTACE 5 MG PO (08:25)
[2024-11-06] MEDS: THERAGRAN 1 TABLET PO (08:25)
--- NOTE | 2024-11-06 08:33 | W.PN.CARDCBS ---
Today's Communication / Plan
-
Stable cardiology status for discharge
Impression / Plan
-
Primary information clerk automobile club: Tim
Severe s/p Right trans femoral TAVR with a 29 mm nominal Gomez Resilia TAVR valve with balloon valvuloplasty 11/04/24 POD#1 Dr. Nancy English
Echo: Peak/mean gradients across the aortic valve are 7/4 mmHg respectively. Trace aortic regurgitation.
L epigastric artery bleed with groin hematoma 11/05/24 POD #0 femoral cutdown and ligation/clips to epigastric artery Dr. Dinero
Hx vocal cord cancer
HTN
HLD
Afib on Eliquis
Depression
Tobacco use disorder
Acute blood loss anemia
Acute L groin hematoma
Poorly controlled HTN
Acute on chronic HFpEF (LVEDP 24 mmHg)
Echo 11/05/2024: EF 74%, #29 TAVR with mean gradient of 9 mmHg
Plan:
Stable cardiology status for discharge
Await CT surgery input
Progress Note - Back Seam Stitcher
Subjective
Date of Service: November 06, 2024
No complaints
Objective
Labs:
11/06/24 05:39
11/06/24 05:39
Labs
Hgb 10.5 g/dL (13.0-18.0) L 11/06/24 05:39
Hct 30.7 % (39.0-52.0) L 11/06/24 05:39
Plt Count 92 10^3/uL (130-400) L D 11/06/24 05:39
PT 13.7 Sec (11.4-14.6) 11/04/24 22:25
INR 1.00 11/04/24 22:25
APTT 27.5 Sec (23.4-35.0) 11/04/24 22:25
Sodium 139 mmol/L (135-145) 11/06/24 05:39
Potassium 3.9 mmol/L (3.5-5.1) 11/06/24 05:39
BUN 18 mg/dl (9-20) 11/06/24 05:39
Creatinine 0.8 mg/dL (0.7-1.3) 11/06/24 05:39
Glucose 115 mg/dl (70-99) H 11/06/24 05:39
Vital Signs and I&O:
Vital Signs
Temp Pulse Resp BP Pulse Ox
99.2 F 70 18 159/81 98
11/06/24 03:22 11/06/24 08:24 11/06/24 03:22 11/06/24 08:24 11/06/24 05:20
Vital Signs
Temp Pulse Resp BP Pulse Ox
99.2 F 70 18 159/81 98
11/06/24 03:22 11/06/24 08:24 11/06/24 03:22 11/06/24 08:24 11/06/24 05:20
Intake & Output
11/04/24 11/05/24 11/06/24 11/07/24
06:59 06:59 06:59 06:59
Intake Total 1850 / 1850 960 / 960
Output Total 600 / 600
Balance 1250 / 1250 960 / 960
Physical Exam
Physical Exam
General: Well developed, well nourished in NAD.
Neck: Supple, no JVD, HJR, carotids +2 B/L, no bruits bilaterally.
Heart: Non displaced PMI, RRR, no murmurs, No S3, S4, no rubs.
Lungs: Clear to auscultation bilaterally, no wheeze, rhonchi, rubs bilaterally,
normal expiratory phase.
Extremities: No clubbing, cyanosis or edema bilaterally.
Neuro: Grossly nonfocal, awake, alert and oriented x3.
--- NOTE | 2024-11-06 08:48 | W.DCSUMMARY ---
Addendum entered and electronically signed by REINIER Collier 11/08/24 11:14:
CDI QUERY RESPONSE
Hyponatremia due to volume overload
Original Note:
Discharge Summary
Discharge Data
Date of Admission: 11/04/24
Date of Discharge: 11/06/24
-
Pending Results: No
Hospital Course
Primary care physician: Abiodun Damian
Outpatient mini bar attendant: Saurav Dumont
Inpatient consultants: [facility]
Procedures:
1. TAVR
2. Repair of epigastric artery
3. Application of BERNARDO vacuum dressing
Primary Diagnosis:
1. Severe nonrheumatic aortic stenosis
Secondary Diagnoses:
1. Postoperative left femoral hematoma
2. Atrial fibrillation on Eliquis
3. Hypertension
4. Hyperlipidemia
5. History of vocal cord cancer status post radiation in 2011
6. History of tobacco abuse (quit 2013)
7. Acute on chronic HFpEF (LVEDP 24 mmHg)
8. post-operative dilutional anemia
HPI: 74-year-old male was electively admitted on 11/04/2024 for TAVR due to severe aortic stenosis.
Hospital course: Patient underwent a right trans femoral TAVR #29 mm nominal Gomez Resilia valve with balloon valvuloplasty by Drs. Yash Cruz and Mel English. Patient had some bradycardic episodes post procedure. Patient returned to IVU in
stable condition. Later that evening, a left groin hematoma was noted and FemoStop applied. Consultation with vascular surgery prompted abdominal CT which identified a small amount of active extravasation from the inferior epigastric artery.
Patient was taken to the operating room by vascular surgery for ligation of the left epigastric artery and application of BERNARDO vacuum dressing. On postoperative day #1, patient maintained sinus rhythm with first-degree AV block. Scrotal and
bilateral thigh ecchymosis were noted. Bernardo dressing remained intact. Eliquis was held. Patient stayed in hospital for observation. A predischarge TTE reported an EF of 74% with AV gradients of 16/9 mmHg and no aortic insufficiency. Patient had
no further episodes of sinus bradycardia. A heart rhythm monitor was ordered for 2 weeks on discharge. Per vascular team, the BERNARDO dressing may be removed on 11/10/2024 and left groin incision left open to air. On postoperative day #2, hemoglobin
was noted to be 10.5, down from 12 the day prior. Lasix 40 mg IV was given for postoperative dilutional anemia. A repeat hemoglobin at 12 noon reported. In the afternoon, Mr. Garcia reported 5 of 10 left groin pain worse with changing positions.
No hematoma, bleeding or bruit noted. Finding discussed with vascular surgeon and abdominal CT obtained with report of no evidence for acute active arterial extravasation of blood into the acute left sided pelvic and inguinal hematoma. The 10.6 cm
EXTRAPERITONEAL HEMATOMA in the left side of the pelvis and left inguinal region adjacent to the left iliac and common femoral vessels appears unchanged in size. Patient reports pain improved ( 2 of 10) with reclining and feels ready for discharge
home.
Home medication changes:
RESUME ELIQUIS 11/07/24!!!!
Discharge Plan
-
Patient Disposition: Home (Routine Discharge)
Discharge Diagnosis/Procedures: TF-TAVR
Condition: Fair
Diet: Low Cholesterol and 2 Gram Sodium
Activity: As tolerated
Driving Restrictions: No driving for 1 week
Bathing Restrictions: OK to Shower
Others Tests: 30 Day Follow Up Echocardiogram:
Other Services: Cardiac Rehab
Wound Care: Please do not apply lotions, creams or powders to groin areas. Please monitor groins for increased pain, swelling, redness or drainage. Notify your doctor if any occur.
Specialty Instructions: Weigh Daily- Call MD for wt gain/loss 3 lbs overnight/5 lbs in 1 week
Activity Restrictions/Additional Instructions:
The white BERNARDO dressing on the groin site can be peeled off and removed on 11/10. you may throw the dressing and battery pack away.
Until removal you may disconnect at hub closest to your body to shower and re-connect after shower
The battery pack will vibrate and blink different colors, this is normal.
If the dressing becomes saturated or peels away before removal date that is ok, you may remove it at that time.
After removal if you would like to cover the site with gauze you may, change this daily. You also may leave open to air.
DO NOT SOAK incision. Showering is fine but no standing water(tub/pool).
Keep this incision as dry as you can when not showering.
Referrals:
CT Transitional Care Nurse [Outside] (The Cardiothoracic Transitional Care Nurse will call you to set up a visit in 1-2 days.)
[facility]. Cardiac Rehab [Outside] - 12/01/24 8:30 am
(Cardiac Rehab Orientation appointment is on 12/01/24 at 8:30 am
The Cardiac Rehab gym is located on the first floor of the [facility].)
Abiodun Xiong DO [Family Provider] -
Caroline Walker PA-C [Specified Professional Personl] - 12/06/24 11:00 am
Lovely Rojas CRNP [Specified Professional Personl] - 11/23/24 9:45 am (Vascular surgery office follow-up)
Prescriptions:
New
acetaminophen 325 mg Tablet
650 mg PO Q4HPRN PRN (Reason: HOLGUIN, mild pain, or fever >101F) Qty: 0 0RF
Continued
atorvastatin 40 mg tablet
40 mg PO DAILY Qty: 90 3RF
ascorbic acid (vitamin C) [Vitamin C] 500 mg Tablet
500 mg PO BID Qty: 0 0RF
ramipril 5 mg Capsule
5 mg PO DAILY Qty: 0 0RF
vitamin B complex Capsule
1 cap PO DAILY Qty: 0 0RF
metoprolol tartrate 25 mg tablet
25 mg PO BID Qty: 60 0RF
cholecalciferol (vitamin D3) [Vitamin D3] 50 mcg (2,000 unit) Tablet
50 mcg PO DAILY Qty: 0 0RF
Eliquis 5 mg tablet
5 mg PO BID Qty: 60 0RF
Rx Instructions:
resume on 11/07/24
Discontinued
Purge Uric Acid Flush Supplem
1 cap PO BID
aspirin 81 mg Tablet,Chewable
81 mg PO DAILY
krill oil 500 mg Capsule
500 mg PO DAILY
Discharge Orders:
Discharge Patient (As Directed); Ordered 11/06/24
Ordered By: Zuri Mcgraw
Care Plan Goals
Care Plan Goals:
Problem: Readiness for enhanced knowledge related to diagnosis and treatment plan
Goal: Understand your diagnosis and treatment plan needs, including medications if applicable.
Instructions: Know your diagnosis, underlying causes and treatment plan options, including medications if applicable. Consult with your health care team to learn about your diagnosis and treatment plan, including medications if applicable.
Discharge Date and Time
Print Language: SCOTTISH
[2024-11-06 13:18] LABS: Hematocrit 32.5 % (39.0-52.0); Hemoglobin 11.2 g/dL (13.0-18.0); Mean Corp Hgb Conc. 34.5 g/dL (33.0-37.0); Mean Corpuscular Hgb 32.7 pg (27.0-31.0); Mean Platelet Volume 9.7 fL (7.4-10.4); Platelet Count 98 10^3/uL (130-400); Red Blood Cell Count 3.42 10^6/uL (4.70-6.10); Red Cell Dist. Width 13.8 % (11.5-14.5); White Blood Cell Count 12.3 10^3/uL (4.8-10.8)
--- NOTE | 2024-11-06 14:26 | PTCARENOTE ---
While pt sitting in recliner at bedside, pt c/o increased left groin to hip tenderness and discomfort. He rated this as 4-5 out of 10 on pain scale. PA notified. Pt taken to CT scan via stretcher. Upon return from CT scan, pt continued to c/o
unchanged 4-5 out of 10 left groin to hip discomfort. Awaiting results. Will monitor.
--- NOTE | 2024-11-06 16:30 | PTCARENOTE ---
Rhythm star monitor applied prior to d/c. Pt d/c'd w/ Rhythm star monitor and Kristine drain intact.
--- NOTE | 2024-11-06 16:58 | PTCARENOTE ---
Discussed d/c instructions w/ pt. VSS. Pt to start eliquis on 11/07 in am, per PA. Discharge instructions changed to reflect 11/07 start date. Pt discharged via wheelchair, by staff. Pt denies any left groin discomfort at discharge.
== END 2024-11-06 16:29 | disposition home or self-care (01) | DRG 266 ==
LOC: IVU 07:36
PROVIDERS: Nurse Practitioner; Physician Assistant Medical; ADMITTING PHYSICIAN Thoracic Surgery (Cardiothoracic Vascular Surgery); CONSULT PHYSICIAN Internal Medicine Interventional Cardiology; FAMILY PHYSICIAN Internal Medicine; OTHER PHYSICIAN Surgery Vascular Surgery
PROC: 02RF38Z Replacement of Aortic Valve with Zooplastic Tissue, Percutaneous Approach (ICD-10-PCS; 2024-11-04)
PROC: 0Y3 Anatomical Regions, Lower Extremities, Control (ICD-10-PCS; 2024-11-05)
DX: I35.0 Nonrheumatic aortic (valve) stenosis (principal); Z00.6 Encounter for examination for normal comparison and control in clinical research program; I50.33 Acute on chronic diastolic (congestive) heart failure; D62 Acute posthemorrhagic anemia; L76.32 Postprocedural hematoma of skin and subcutaneous tissue following other procedure; L76.22 Postprocedural hemorrhage of skin and subcutaneous tissue following other procedure; E87.1 Hypo-osmolality and hyponatremia; I44.7 Left bundle-branch block, unspecified; R00.1 Bradycardia, unspecified; I44.1 Atrioventricular block, second degree; I11.0 Hypertensive heart disease with heart failure; E78.00 Pure hypercholesterolemia, unspecified; I48.91 Unspecified atrial fibrillation; F32.A Depression, unspecified; F41.9 Anxiety disorder, unspecified; I25.10 Atherosclerotic heart disease of native coronary artery without angina pectoris; Y83.8 Other surgical procedures as the cause of abnormal reaction of the patient, or of later complication, without mention of misadventure at the time of the procedure; Z92.3 Personal history of irradiation; Z85.21 Personal history of malignant neoplasm of larynx; Z87.891 Personal history of nicotine dependence; Z79.82 Long term (current) use of aspirin; Z79.01 Long term (current) use of anticoagulants
CPT/HCPCS: 93308; 33361; 35840; 36415; 71045; 71046; 75635; 80048; 80053; 81003; 82248; 83036; 83605; 83735; 83880; 85025; 85027; 85347; 85610; 85730; 86850; 86900; 86901; 87070; 93005; 93306; 93321; 93325; C1760; C1769; C1894; Q9967

== ENCOUNTER 2024-11-25 13:28 | Day surgery (SDC) | payer MEDICARE, OTHER, SELFPAY ==
[2024-11-25] VITALS (18 sets, daily range): BP systolic 148–210; BP diastolic 68–109; BMI 28.1
--- NOTE | 2024-11-25 09:54 | ED.GENMED ---
History of Present Illness
General
Chief Complaint: Heart Rate Problem
Source: patient, records, spouse, physician and previous hospital records
Exam Limitations: none
Time Seen by Provider: 11/25/24 09:34
Nursing documentation reviewed up to this point in time: agreed with
History of Present Illness
History of Present Illness:
74-year-old male referred by cardiology for evaluation of slow heart rate pacemaker placement status post TAVR a few weeks ago has been on outpatient monitor no syncope but is felt fatigued
Past History
Past History
ED Past Medical History: Arrthythmia and Valvular disease
ED Past Surgical History: Cardiac
Social History
Tobacco: Non-smoker
Alcohol: Occasional
Drug: None
Personal:
Living: with family
Employment: Retired
Phy Exam
Physical Exam
Physical Exam:
Physical Exam
General: no apparent distress, not acutely ill
Neck: No jvd
Heart: radha
Lungs: no acute respiratory distress. clear bilaterally
Neuro: alert and oriented. no focal neurological deficits
Skin: no rash
Psychiatric: well kept. interactive and cooperative
Extremities: no edema.
Course
Orders/Labs/Results
Orders:
Orders
11/25/24 09:19
Electrocardiogram (*1) Urgent
Reason for Study: Abnormal EKG
11/25/24 09:20
EKG- Treatment ONCE
11/25/24 09:45
Complete Blood Count/With Diff Urgent
11/25/24 09:46
CARDIOLOGY CONSULT Urgent
Consulting Provider: Raz Boyce
Was physician already notified: Yes
Comprehensive Metabolic Panel Urgent
PTT Urgent
Prothrombin Time Urgent
11/25/24 09:54
CeFAZolin 1 GRAM [Ancef] 1 gram 0.9% Sod Chloride 250 ml Irr [Nss Irrigation Bottle] 250 ml IRRIG CATH
CeFAZolin 2 GRAM [Ancef] 2 grams in 10 ml IV CATH
Vital Signs
Initial and Last Documented VS:
Initial Vital Signs
Temp Pulse Resp BP Pulse Ox
98.5 F 36 18 180/77 99
11/25/24 09:31 11/25/24 09:31 11/25/24 09:31 11/25/24 09:31 11/25/24 09:31
Last Documented Vital Signs
Temp Pulse Resp BP Pulse Ox
98.5 F 36 14 185/81 96
11/25/24 09:31 11/25/24 09:45 11/25/24 09:45 11/25/24 09:40 11/25/24 09:51
MDM/Problems Addressed
Differential Diagnosis Includes:
Complete heart block secondary heart block vasovagal AV dissociation
MDM/Problems Addressed:
Fatigue slow heart rate
Chronic conditions affecting care:
Valvular disease
Acute Exacerbation and/or Progression of Chronic Illness:
Valvular disease slow heart rate
*Pulse Oximetry
Patient hypoxic: no
*EKG
Interpreted by ED Provider?: Yes
Interpretation: abnormal
Comparison EKG: changes noted
Heart Rate: 36
Rate: bradycardiac
Rhythm: sinus
[place]: normal axis
Ischemia: non-specific ST changes
*Wood Polisher Interpretation
Rate: bradycardiac
Interpretation: abnormal
Heart Rate: 36
Rhythm: sinus
*Critical Care Note
Total Time (30-74mins, 75-104mins- exclusive of procedures): 8
Data Reviewed
Review of Other/Old Records Reveals: Records, Testing and Progress Notes
Source: patient, records, spouse, physician and previous hospital records
Prescriptions/Medications Considered But Not Given:
Atropine dopamine
Further Testing Considered But Not Given:
Lyme disease
Update Note
Update Note:
Patient with a complete heart block well-tolerated blood pressure okay mentating okay reviewed with cardiology and EP patient will go for an urgent pacemaker today
ED Attending Note
-
Portions of this chart may have been created with voice recognition software.� Occasional wrong word or��sound alike� substitutions may have occurred due to the inherent limitations of voice recognition software.
Discharge Plan
Departure
Patient Disposition: Admit
Date of Disposition: 11/25/24
Time of Disposition: 09:52
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
Presentation/result/management discussed w/ accepting MD/DO: DCA
Condition: Fair
Covid-19: Not Applicable
Discharge Problem:
CHB (complete heart block)
Prescriptions:
No Action
atorvastatin 40 mg tablet
40 mg PO DAILY Qty: 90 3RF
ascorbic acid (vitamin C) [Vitamin C] 500 mg Tablet
500 mg PO BID Qty: 0 0RF
ramipril 5 mg Capsule
5 mg PO DAILY Qty: 0 0RF
vitamin B complex Capsule
1 cap PO DAILY Qty: 0 0RF
metoprolol tartrate 25 mg tablet
25 mg PO BID Qty: 60 0RF
cholecalciferol (vitamin D3) [Vitamin D3] 50 mcg (2,000 unit) Tablet
50 mcg PO DAILY Qty: 0 0RF
Eliquis 5 mg tablet
5 mg PO BID Qty: 60 0RF
Rx Instructions:
resume on 11/07/24
Uric Acid Purge Supplement
1 cap PO DAILY
Interventions
Interventions:
*Risk Screen - Suicide Last Done: 11/25/24 09:31
*General Assessment Last Done: 11/25/24 09:31
*Neglect/Abuse Screening Last Done: 11/25/24 09:31
ED- Cardiac Assessment Last Done: 11/25/24 09:51
ED- Pulmonary Assessment Last Done: 11/25/24 09:51
Discharge Date and Time
Print Language: MONGOLIAN
[2024-11-25 10:05] LABS: % Eosinophils 5.9 % (0-6); % Immature Granulocytes 0.3 % (0-0.5); % Lymphocytes 26.1 % (20.5-51.1); % Monocytes 10.2 % (1.7-9.3); % Neutrophils 56.5 % (42.2-75.2); Absolute Basophils 0.1 10^3/uL (0-0.2); Absolute Eosinophils 0.3 10^3/uL (0-0.7); Absolute Lymphocytes 1.5 10^3/uL (1.2-3.4); Absolute Monocytes 0.6 10^3/uL (0.1-0.6); Absolute Neutrophils 3.3 10^3/uL (1.4-6.5); Hemoglobin 11.7 g/dL (13.0-18.0); Mean Corp Hgb Conc. 33.4 g/dL (33.0-37.0); Mean Corpuscular Hgb 31.7 pg (27.0-31.0); Mean Corpuscular Volume 94.9 fL (80.0-94.0); Mean Platelet Volume 9.8 fL (7.4-10.4); Nucleated Red Blood Cells % 0 % (-); Platelet Count 194 10^3/uL (130-400); Red Blood Cell Count 3.69 10^6/uL (4.70-6.10); Red Cell Dist. Width 13.5 % (11.5-14.5); White Blood Cell Count 5.8 10^3/uL (4.8-10.8)
--- NOTE | 2024-11-25 10:10 | CON.CAR ---
Addendum entered and electronically signed by Marito Bran MD 11/25/24 11:29:
Patient seen, interviewed and examined by me.
Patient tells me that he has been feeling increasing fatigue over the past several days. He has had no syncope or near syncope. No falls. No chest pain. Some dyspnea with exertion.
Outpatient monitoring has correlated this to the development of complete heart block.
Well-appearing, no acute distress while lying flat in bed
Bradycardic, regular rate and rhythm with normal S1 and S2, no S3 no S4. There is a grade 1/6 apical holosystolic murmur and no rubs. PMI is normally placed.
Lungs are clear to auscultation bilaterally without wheezes rales or rhonchi.
Abdomen soft nontender nondistended with normoactive bowel sounds
Extremities show trace pretibial edema bilaterally no clubbing or cyanosis.
Neurologic exam is grossly nonfocal.
He has developed symptomatic complete heart block approximately 3 weeks after his transcatheter aortic valve replacement which was November 04, 2024.
EKG from today is personally reviewed by me and demonstrates sinus rhythm with complete heart block and wide QRS complex (left bundle branch morphology) escape, QRS duration 200 ms, heart rate of 36 bpm.
This is compared to his EKG subsequent to TAVR our from November 04, 2024 which shows sinus bradycardia at 52 bpm first-degree AV delay and a nonspecific left-sided interventricular conduction delay.
Pre-TAVR ECG finds sinus rhythm with normal UT interval and an incomplete right bundle branch block.
He was discharged to home on continuous outpatient monitoring (Rhythm Star) which demonstrated complete heart block.
He was subsequently referred to [facility] [address] emergency department where I met with him and his . We reviewed the findings of his EKG and how they correlate to his symptoms. He has symptomatic complete heart block with no reversible
cause, this is likely related to conduction system injury following TAVR.
We discussed options and I recommended implantation of dual-chamber permanent pacemaker. I described the procedure to them in detail. I described likely success and possible risks. They understand and wish to proceed. Informed consent obtained
by me.
He is left-handed. We will place device on the right upper chest.
Original Note:
Consultation
Consultation Request
Date/Time Consultation Requested: 11/25/2024
Date/Time Consultation Performed: 11/25/2024
Requesting Provider: Dr. Chandler
Performing Provider: Lexi Mosley PA-C for Dr. Jessee Bran
Reason for Consultation: Complete Heart Block
Medical History
-
History of Present Illness:
HPI: Zelalem is a 74 year old male with PMH of paroxysmal atrial fibrillation on chronic Eliquis, HTN, HLD, vocal cord cancer, and recent TAVR 11/04/2024. After TAVR he was noted to have some QRS widening as well as intermittent Wenckebach and was
discharged with a 14 day Rhythm Star monitor in place. He was feeling fairly well post procedure, but has had some fatigue and shortness of breath with exertion. Denies any dizziness, lightheadedness, weakness, syncope, or near syncope. Rhythm star
monitor was returned and reviewed today and revealed complete heart block. He was called and told to come to ER for PPM placement. He did not take any of his medications this AM. Last dose of Eliquis was PM 11/24. Has not eaten yet this AM. He
continues to feel well in ER. Initial ECG reviewed, complete heart block with HR 36 bpm. Cardiology consulted for evaluation. Continues to deny any chest pain or dizziness.
PMH:
Severe s/p R TF TAVR 11/04/2024
Paroxysmal atrial fibrillation
Chronic Eliquis AC
HTN
HLD
h/o vocal cord cancer
Depression
Past Medical History
Past Medical History: Other (In HPI)
Past Surgical History: Cardiac (TAVR 11/04/2024), Tonsilectomy and Other (vocal cord biopsies)
Social History
Tobacco: Former Smoker
Alcohol: Occasional
Drug: None
Personal:
Living: With Family
Employment: Retired
Family History
Family History: Hypertension
Allergies / Home Medications
Allergy/AdvReac Type Severity Reaction Status Date / Time
No Known Allergies Allergy Verified 11/25/24 09:31
�Medication �Instructions �Recorded �Confirmed �Type
apixaban 5 mg tablet (Eliquis) 5 mg PO BID Blood clot 11/06/24 11/25/24 Rx
prevention/tx #60 tabs
ascorbic acid (vitamin C) 500 mg 500 mg PO BID Supplement #0 tabs 11/06/24 11/25/24 Rx
tablet (Vitamin C)
atorvastatin 40 mg tablet 40 mg PO DAILY High cholesterol 11/06/24 11/25/24 Rx
#90 tabs
cholecalciferol (vitamin D3) 50 50 mcg PO DAILY Supplement #0 tabs 11/06/24 11/25/24 Rx
mcg (2,000 unit) tablet (Vitamin
D3)
metoprolol tartrate 25 mg tablet 25 mg PO BID Heart 11/06/24 11/25/24 Rx
disease/condition #60 tabs
ramipril 5 mg capsule 5 mg PO DAILY Blood pressure #0 11/06/24 11/25/24 Rx
caps
vitamin B complex 1 cap PO DAILY Supplement #0 caps 11/06/24 11/25/24 Rx
Uric Acid Purge Supplement 1 cap PO DAILY 11/25/24 11/25/24 History
Review of Systems
-
History Source: Patient
All other systems: Negative unless noted
Physical Exam
Vital Signs
Temp Pulse Resp BP Pulse Ox
98.5 F 36 14 185/81 96
11/25/24 09:31 11/25/24 09:45 11/25/24 09:45 11/25/24 09:40 11/25/24 09:51
Lab Results
11/25/24 09:45
Physical Exam
General: Well Developed, Well Nourished and No Apparent Distress
HEENT: Normocephalic, Anicteric and Moist Mucous Membranes
Respiratory: Clear and Non Labored Respirations
Cardiac: S1/S2 and Regular Rhythm
Musculoskeletal: No Clubbing, No Cyanosis and No Edema
Skin: Warm and Dry
Neuro: AO x 3 and Nonfocal/Grossly Intact
Psych: Calm
Impression / Plan
-
PCP: Dr. Xiong
Supervisor Type Bar And Segment: Dr. Dumont
Impression:
Complete heart block
Severe s/p R TF TAVR 11/04/2024
Paroxysmal atrial fibrillation
Chronic Eliquis AC
HTN
HLD
h/o vocal cord cancer
Depression
Echo 09/03/2024: EF 55-60%, mild cLVH, stage I diastolic dysfunction, mild MR, severe with peak/mean gradients 89/55 mmHg, SHANIQUA 0.6 cm2, mild TR, estimated PAP 23 mmHg
Echo 11/05/2024: EF 74%, mild cLVH, mild RM, well seated 29 mm TAVR with peak/mean gradients 16/9 mmHg, no AI
Plan:
-Presented with bradycardia/complete heart block noted on OP monitor.
-He is s/p TAVR 11/04/2024 and was noted to have QRS widening as well as intermittent Wenckebach post procedure, so was discharged with 14 day rhythm star monitor in place.
-Montior reviewed today by fingernail sculpturer and noted to have complete heart block, so referred to ER.
-Initial ECG SR with complete heart block and HR 36 bpm. Notes some fatigue and SOB, no dizziness or syncope.
-Plan is for urgent PPM implantation today, 11/25.
-Last dose of Eliquis in PM 11/24. No food this AM. Keep NPO.
-Continue ramipril, atorvastatin.
-Further recommendations to be made post-procedure.
HPI: Zelalem is a 74 year old male with PMH of paroxysmal atrial fibrillation on chronic Eliquis, HTN, HLD, vocal cord cancer, and recent TAVR 11/04/2024. After TAVR he was noted to have some QRS widening as well as intermittent Wenckebach and was
discharged with a 14 day Rhythm Star monitor in place. He was feeling fairly well post procedure, but has had some fatigue and shortness of breath with exertion. Denies any dizziness, lightheadedness, weakness, syncope, or near syncope. Rhythm star
monitor was returned and reviewed today and revealed complete heart block. He was called and told to come to ER for PPM placement. He did not take any of his medications this AM. Last dose of Eliquis was PM 11/24. Has not eaten yet this AM. He
continues to feel well in ER. Initial ECG reviewed, complete heart block with HR 36 bpm. Cardiology consulted for evaluation. Continues to deny any chest pain or dizziness.
Data Reviewed
-
EKG: Tracing Personally Visualized and interpreted
Labs: Labs Reviewed by me
Old Records: Reviewed
[2024-11-25 10:13] LABS: ALT (SGPT) 59 U/L (0-50); AST (SGOT) 22 U/L (17-59); Albumin 4.2 g/dl (3.5-5.0); Alkaline Phosphatase 120 U/L (38-126); Blood Urea Nitrogen 26 mg/dl (9-20); Calcium 8.9 mg/dl (8.4-10.2); Carbon Dioxide 25 mmol/L (22-30); Chloride 105 mmol/L (98-107); Estimated Creatinine Clearance 67 ml/min; Glucose 96 mg/dl (70-99); Potassium 4.3 mmol/L (3.5-5.1); Sodium 141 mmol/L (135-145); Total Bilirubin 0.7 mg/dl (0.2-1.3); Total Protein 6.6 g/dl (6.3-8.2); eGFR > 60.00
[2024-11-25 10:19] LABS: INR 1.09; PT 14.4 Sec (11.4-14.6)
[2024-11-25 10:20] LABS: APTT 39.1 Sec (23.4-35.0)
--- NOTE | 2024-11-25 13:38 | PTCARENOTE ---
Patient admitted to 2240 at 1300 after placement of PPM today. Patient was here earlier this month for TAVR. Oriented to the room and plan of care, post EKG done. Dressing right upper chest is dry and intact with immobilizer in place. Patient denies
any pain or discomfort but appears upset over repeat need for hospitalization. BP running high, 190-205/90-100, patient states he did not take any of his morning meds today. TT to Tiffany Olivera NP re: elevated BP. S.O. at the bedside, call galarza in reach.
[2024-11-25] MEDS: ALTACE 5 MG PO (13:54)
[2024-11-25] MEDS: APRESOLINE 5 MG IV ×2 (13:55→22:47)
--- NOTE | 2024-11-25 14:40 | CM ---
Reviewed chart. Met with Mr. Garcia to review discharge plans. He states prior to admission he resides with his spouse in a two story home with three steps to enter. He states he has six steps to enter the home form the back. He states he has a
full flight of steps to get to bedroom/full bathroom. He has a powder room on the first floor. He states prior to admission he was independent with ambulation and adls. He states he does not have any DME in the home. He states he has a
prescription plan and uses [facility]. The discharge plan is to return home with his spouse when medically stable.
--- NOTE | 2024-11-25 16:04 | PTCARENOTE ---
BP elevated after pacer, patient given his morning dose of altace and hydralazine 5mg IV. BP now 148/86, dressing right upper chest is dry and intact, patient offers no complaints. Call galarza in reach, instructed to call for assistance the first time
getting oob.
--- NOTE | 2024-11-25 17:18 | ITS.CL.PACE ---
Database Coordinator - Pacemaker Implant
Pacemaker Implant
Procedure Report:
PACEMAKER IMPLANT REPORT
Primary Care Provider: Dr. Abiodun Xiong
Primary hiv counselor: Dr. Saurav Dumont
Date of Procedure: November 25, 2024
Procedure:
Implantation of dual-chamber permanent pacemaker utilizing the left bundle branch for conduction system pacing
Indication/Diagnosis:
Non-reversible symptomatic bradycardia due to third degree atrioventricular block.
He has developed symptomatic complete heart block approximately 3 weeks after his transcatheter aortic valve replacement which was November 04, 2024. He has been referred from Dr. Dumont for permanent pacemaker implantation.
After informed consent was obtained, 'time out' was called and confirmed, the patient was prepped and draped in a sterile fashion. Lidocaine with epi was used for local anesthesia. Central venous access was obtained via subclavian venipuncture. An
incision was made along the left chest and a pre-pectoral pocket was formed. Prior to placement of any pacing leads, he developed periods of asystole and required brief period of external pacing until pacing lead could be placed within the right
ventricle.
Fluoroscopy was used to determine likely anatomic site for left bundle branch pacing. The Medtronic C315 sheath was used to deliver the Medtronic 3830 Selectsecure pacing lead with the helix exposed just exposed from the sheath tip during continuous
monitoring when pacemapping the septum during gentle clockwise rotation to obtain a paced QRS morphology of a W pattern in lead V1. Once the suspected optimal site was identified, lead deployment was performed with several rapid rotations as paced
QRS morphology was intermittently monitored until a paced QRS complex in lead V1 demonstrated development of an R wave qR.
Unipolar pacing impedance dropped by approximately 100 ohms suggesting it had reached the left ventricular subendocardial.
Stable VEgm injury current is present throughout final lead position including at end of case, suggesting there was no perforation through the septum into the LV cavity.
Unipolar pacing impedance is 1000 Ohms
Unipolar pacing threshold is stable at 1.5 V @ 0.4 ms.
Final conduction system paced QRS complex duration is 115 ms
LVAT is 95 ms and peak V5 -> peak V1 timing is 58 ms
Right atrial lead was placed at the RAA.
Once testing (see below) showed adequate and stable function, the leads were secured using the suture sleeves. The pocket was liberally irrigated with antibiotic solution. The leads were connected to the generator header and the leads and
generator were placed within the pocket. Fluoroscopy confirmed stable lead position. The pocket was closed in the typical fashion.
Antibiotic pouch was used
Fluoroscopy was used to guide lead placement.
IMPLANTS:
Medtronic [id number], Left Pectoral
RA: Medtronic 5076-45 , RAA
Left Bundle: Medtronic [id number], Interventricular septum at LBB
DEVICE TESTING:
Sensing: RA 1.5 mV, RV 8 mV
Capture: RA 1.5 V@0.4ms, RV 1.5 V@0.4ms
Ohms: RA 700 , RV 900
FINAL PROGRAMMING
Alli Pacing: DDDR 60-130 ppm
COMPLICATIONS:
None
CONCLUSIONS:
1: Successful implant of dual chamber permanent pacemaker utilizing Left Bundle Branch conduction system capture for ventricular resynchronization pacing.
RECOMMENDATIONS:
1. Post-op care (tele, CXR, IV abx)
2. In-Office wound check in 5-7 days
Copy to:
Dr. Abiodun Xiong
Dr. Saurav Dumont
[2024-11-25] MEDS: ANCEF 5 IV (17:26)
[2024-11-25] MEDS: LIPITOR 40 MG PO (17:27)
[2024-11-25] MEDS: TYLENOL 650 MG PO (19:34)
[2024-11-25] MEDS: LOPRESSOR 25 MG PO (19:34)
--- NOTE | 2024-11-25 20:52 | PTCARENOTE ---
received patient at the change of shift. AAOx3. resting in the chair with at the bedside. patient states having mild discomfort at his R shoulder, PPM site, tylenol given, see mar. V paced on tele 60s. bp 161/93. PM meds given. improved bp-
151/68. R chest site CDI. soft, pressure dressing intact. R arm immobilizer. reviewed activity restrictions with patient and verbalized understanding. educated patient to inform RN with any changes. call galarza within reach.
--- NOTE | 2024-11-25 22:50 | PTCARENOTE ---
Addendum entered by Vishnu Gaffney RN 11/26/24 00:23:
post hydralazine bp- 157/75.
Original Note:
patients blood pressure 181/84. Hr paced 60s. updated Vamsi CAMEJO. hydralazine 5 mg IV ordered and given, see jan.
[2024-11-26] MEDS: ANCEF 5 IV (01:41)
[2024-11-26] MEDS: TYLENOL 650 MG PO ×2 (01:41→07:55)
[2024-11-26 04:17] VITALS: BP 173/99
[2024-11-26 04:18] VITALS: BP 181/82
[2024-11-26] MEDS: LOPRESSOR 25 MG PO (04:26)
--- NOTE | 2024-11-26 04:30 | PTCARENOTE ---
blood pressure this AM- 173/99. recheck- 181/82. HR paced 60s. updated Vamsi BUENO PA. will give AM dose of Lopressor 25 mg now-see jan.
[2024-11-26 05:08] LABS: Hematocrit 33.7 % (39.0-52.0); Hemoglobin 11.5 g/dL (13.0-18.0); Mean Corp Hgb Conc. 34.1 g/dL (33.0-37.0); Mean Corpuscular Hgb 31.9 pg (27.0-31.0); Mean Corpuscular Volume 93.4 fL (80.0-94.0); Mean Platelet Volume 9.6 fL (7.4-10.4); Platelet Count 177 10^3/uL (130-400); Red Blood Cell Count 3.61 10^6/uL (4.70-6.10); Red Cell Dist. Width 13.3 % (11.5-14.5); White Blood Cell Count 8.1 10^3/uL (4.8-10.8)
[2024-11-26 05:36] LABS: Blood Urea Nitrogen 18 mg/dl (9-20); Calcium 8.7 mg/dl (8.4-10.2); Carbon Dioxide 24 mmol/L (22-30); Chloride 104 mmol/L (98-107); Estimated Creatinine Clearance 81 ml/min; Glucose 93 mg/dl (70-99); Magnesium 2.2 mg/dl (1.6-2.3); Potassium 4.2 mmol/L (3.5-5.1); Sodium 137 mmol/L (135-145); eGFR > 60.00
[2024-11-26 07:50] VITALS: BP 177/90
[2024-11-26] MEDS: ALTACE 5 MG PO (07:51)
[2024-11-26] MEDS: ELIQUIS 5 MG PO (07:52)
[2024-11-26 08:15] VITALS: BMI 27.3
--- NOTE | 2024-11-26 08:40 | PTCARENOTE ---
Received patient this morning resting in bed, having discomfort in his right shoulder and at pacer site, medicated with tylenol PO. Patient seen by Dr. Bran, aware of elevated blood pressures and will await further orders. Plans for discharge
today.
--- NOTE | 2024-11-26 08:58 | W.PN.CARDCBS ---
Today's Communication / Plan
-
post PPM, resume eliquis this am
titrate BP meds
home today
Impression / Plan
-
PCP: Dr. Xiong
English Drawer: Dr. Dumont
Impression:
Complete heart block
Severe s/p R TF TAVR 11/04/2024
Paroxysmal atrial fibrillation
Chronic Eliquis AC
HTN
HLD
h/o vocal cord cancer
Depression
Echo 09/03/2024: EF 55-60%, mild cLVH, stage I diastolic dysfunction, mild MR, severe with peak/mean gradients 89/55 mmHg, SHANIQUA 0.6 cm2, mild TR, estimated PAP 23 mmHg
Echo 11/05/2024: EF 74%, mild cLVH, mild RM, well seated 29 mm TAVR with peak/mean gradients 16/9 mmHg, no AI
Plan:
Post DC PPM Medtronic 11/25/24
site stable with small old drainage marked, pressure dressing removed
CXR no PTX, leads in good position
tele AV dual paced
restarted OAC this am Eliquis
uncontrolled HTN required hydralazine x 2 o/n, will increase ramipril to 5mg bid, continue metoprolol
keep BP log and bring to follow apt
Activity restrictions reviewed
Cardiac rehab called to reschedule
Incision check in 1 week
home today
HPI: Zelalem is a 74 year old male with PMH of paroxysmal atrial fibrillation on chronic Eliquis, HTN, HLD, vocal cord cancer, and recent TAVR 11/04/2024. After TAVR he was noted to have some QRS widening as well as intermittent Wenckebach and was
discharged with a 14 day Rhythm Star monitor in place. He was feeling fairly well post procedure, but has had some fatigue and shortness of breath with exertion. Denies any dizziness, lightheadedness, weakness, syncope, or near syncope. Rhythm star
monitor was returned and reviewed today and revealed complete heart block. He was called and told to come to ER for PPM placement. He did not take any of his medications this AM. Last dose of Eliquis was PM 11/24. Has not eaten yet this AM. He
continues to feel well in ER. Initial ECG reviewed, complete heart block with HR 36 bpm. Cardiology consulted for evaluation. Continues to deny any chest pain or dizziness.
Progress Note - English Drawer
Subjective
Date of Service: November 26, 2024
mild inc pain, no sob
Objective
Labs:
11/26/24 04:15
11/26/24 04:15
Labs
Hgb 11.5 g/dL (13.0-18.0) L 11/26/24 04:15
Hct 33.7 % (39.0-52.0) L 11/26/24 04:15
Plt Count 177 10^3/uL (130-400) 11/26/24 04:15
PT 14.4 Sec (11.4-14.6) 11/25/24 09:46
INR 1.09 11/25/24 09:46
APTT 39.1 Sec (23.4-35.0) H 11/25/24 09:46
Sodium 137 mmol/L (135-145) 11/26/24 04:15
Potassium 4.2 mmol/L (3.5-5.1) 11/26/24 04:15
BUN 18 mg/dl (9-20) 11/26/24 04:15
Creatinine 0.9 mg/dL (0.7-1.3) 11/26/24 04:15
Glucose 93 mg/dl (70-99) 11/26/24 04:15
Vital Signs and I&O:
Vital Signs
Temp Pulse Resp BP Pulse Ox
98.7 F 60 20 177/90 95
11/26/24 08:11 11/26/24 08:00 11/26/24 08:11 11/26/24 07:51 11/26/24 08:11
Vital Signs
Temp Pulse Resp BP Pulse Ox
98.7 F 60 20 177/90 95
11/26/24 08:11 11/26/24 08:00 11/26/24 08:11 11/26/24 07:51 11/26/24 08:11
Intake & Output
11/24/24 11/25/24 11/26/24 11/27/24
06:59 06:59 06:59 06:59
Intake Total 450 / 450
Balance 450 / 450
Physical Exam
Physical Exam
NAD< AOx3
S1, S2, RRR
CTAB, non labored
SNTND bsx4
R CW dressing with small old drainage marked, no HT, pressure dressing removed
--- NOTE | 2024-11-26 10:14 | W.DS.TRANS ---
DC Summary - Personal Coach
-
Discharge Instructions:
Sleep Apnea Risk Intermediate
Discharge Diagnosis/Procedures Heart block post Pacemaker implant
Diet Low Cholesterol
Driving Restrictions No driving for 1 week
Bathing Restrictions OK to Shower
Blood Work Check BMP in 1 week
Instructions:
Stand-Alone Forms: DC Inst - Implanted Device
Changes to Home Medications: Yes
Discharge Medications:
DC Medications w/original date entered in [facility]
apixaban 5 mg tablet (Eliquis) 5 mg PO BID Blood clot prevention/tx #60 tabs 11/06/24
ascorbic acid (vitamin C) 500 mg tablet (Vitamin C) 500 mg PO BID Supplement #0 tabs 11/06/24
atorvastatin 40 mg tablet 40 mg PO DAILY High cholesterol #90 tabs 11/06/24
cholecalciferol (vitamin D3) 50 mcg (2,000 unit) tablet (Vitamin D3) 50 mcg PO DAILY Supplement #0 tabs 11/06/24
metoprolol tartrate 25 mg tablet 25 mg PO BID Heart disease/condition #60 tabs 11/06/24
vitamin B complex 1 cap PO DAILY Supplement #0 caps 11/06/24
Uric Acid Purge Supplement 1 cap PO DAILY 11/25/24
ramipril 5 mg capsule 5 mg PO BID Blood pressure #60 caps 11/26/24
Home Medication Changes
increase ramipril to bid
Pending Results: No
--- NOTE | 2024-11-26 10:22 | PTCARENOTE ---
Reviewed discharge instructions and post op restrictions, follow up appointments, blood work ordered. The patient and his state their understanding. Patient is aware that he should increase his altace to bid and that he should monitor his BP
and bring record to his post op appointment. Patient discharged home with his .
== END 2024-11-26 10:05 | disposition home or self-care (01) ==
LOC: EMR 13:28
PROVIDERS: Nurse Practitioner Adult Health; ATTENDING PHYSICIAN Internal Medicine Cardiovascular Disease; CONSULT PHYSICIAN Nuclear Medicine Nuclear Cardiology; EMERGENCY PHYSICIAN Emergency Medicine; FAMILY PHYSICIAN Internal Medicine
DX: I44.2 Atrioventricular block, complete (principal); R00.1 Bradycardia, unspecified; I48.0 Paroxysmal atrial fibrillation; Z95.2 Presence of prosthetic heart valve; I35.0 Nonrheumatic aortic (valve) stenosis; I10 Essential (primary) hypertension; E78.5 Hyperlipidemia, unspecified; Z85.21 Personal history of malignant neoplasm of larynx; Z79.01 Long term (current) use of anticoagulants; F32.A Depression, unspecified; Z87.891 Personal history of nicotine dependence; Z79.899 Other long term (current) drug therapy; Z82.49 Family history of ischemic heart disease and other diseases of the circulatory system; Z83.49 Family history of other endocrine, nutritional and metabolic diseases
CPT/HCPCS: 33208; 71045; 80048; 80053; 83735; 85025; 85027; 85610; 85730; 93005; 99285; C1769; C1785; C1887; C1892; C1898; Q9967

== ENCOUNTER → 2024-12-03 12:53 | Outpatient (REF) | payer MEDICARE, OTHER, SELFPAY | LOC: RCS 12:53 | PROVIDERS: ATTENDING PHYSICIAN Internal Medicine Cardiovascular Disease; FAMILY PHYSICIAN Internal Medicine | DX: Z95.2 Presence of prosthetic heart valve (principal) | CPT/HCPCS: 93306 ==

== ENCOUNTER → 2024-12-20 06:45 | Outpatient (REF) | payer MEDICARE, OTHER, SELFPAY | LOC: RAD 06:45 | PROVIDERS: ATTENDING PHYSICIAN Registered Nurse; FAMILY PHYSICIAN Internal Medicine | DX: S30.1XXA Contusion of abdominal wall, initial encounter (principal); Z48.89 Encounter for other specified surgical aftercare | CPT/HCPCS: 93922; 93926; 93978 ==

== ENCOUNTER 2024-12-31 11:17 | Outpatient (RCR) | payer MEDICARE, OTHER, SELFPAY ==
[2024-12-29 11:11] LABS: HDL Cholesterol 61 mg/dl; LDL Cholesterol, Calculated 100 mg/dl; Total Cholesterol 183 mg/dl (50-199); Triglyceride 113 mg/dl (10-149); Very Low Density Lipoprotein 22 mg/dl (0-30)
== END 2024-12-31 23:59 | disposition home or self-care (01) ==
LOC: CRHB 11:17
PROVIDERS: ATTENDING PHYSICIAN Internal Medicine Cardiovascular Disease; FAMILY PHYSICIAN Internal Medicine; REFERRING PHYSICIAN Internal Medicine Cardiovascular Disease
DX: Z95.4 Presence of other heart-valve replacement (principal)
CPT/HCPCS: 36415; 80061; 93798; G0422; G0423

== ENCOUNTER 2025-01-31 09:59 | Outpatient (RCR) | payer MEDICARE, OTHER, SELFPAY | END 2025-01-31 23:59 | disposition home or self-care (01) | LOC: CRHB 09:59 | PROVIDERS: ATTENDING PHYSICIAN Internal Medicine Cardiovascular Disease; FAMILY PHYSICIAN Internal Medicine; REFERRING PHYSICIAN Internal Medicine Cardiovascular Disease | DX: Z95.4 Presence of other heart-valve replacement (principal) | CPT/HCPCS: G0422; G0423 ==

== ENCOUNTER 2025-03-02 10:33 | Outpatient (RCR) | payer MEDICARE, OTHER, SELFPAY | END 2025-03-02 23:59 | disposition home or self-care (01) | LOC: CRHB 10:33 | PROVIDERS: ATTENDING PHYSICIAN Internal Medicine Cardiovascular Disease; FAMILY PHYSICIAN Internal Medicine; REFERRING PHYSICIAN Internal Medicine Cardiovascular Disease | DX: Z95.4 Presence of other heart-valve replacement (principal) | CPT/HCPCS: G0422; G0423 ==

== ENCOUNTER 2025-04-01 09:00 | Outpatient (RCR) | payer MEDICARE, OTHER, SELFPAY | END 2025-04-01 15:04 | disposition home or self-care (01) | LOC: CRHB 09:00 | PROVIDERS: ATTENDING PHYSICIAN Internal Medicine Cardiovascular Disease; FAMILY PHYSICIAN Internal Medicine; REFERRING PHYSICIAN Internal Medicine Cardiovascular Disease | DX: Z95.4 Presence of other heart-valve replacement (principal) | CPT/HCPCS: 93797; 93798; G0422; G0423 ==

== ENCOUNTER 2025-08-23 16:19 | Observation (INO) | payer MEDICARE, OTHER, SELFPAY ==
[2025-08-23] VITALS (8 sets, daily range): BP systolic 150–182; BP diastolic 90–106; BMI 27.8; BMI 28.6
--- NOTE | 2025-08-23 13:46 | ED.GENMED ---
History of Present Illness
General
Chief Complaint: Abnormal Lab Value
Source: patient
Exam Limitations: none
Time Seen by Provider: 08/23/25 13:23
Nursing documentation reviewed up to this point in time: agreed with
History of Present Illness
History of Present Illness:
Patient is a 74-year-old male with past medical history of TAVR, pacemaker(right sided ) on Eliquis 5 mg twice daily presents to the ER for an abnormal ultrasound. For the past 2 weeks patient has noticed increased bleeding and swelling in his
right upper arm. He saw family doctor yesterday and had an ultrasound today. He denies any associated shortness of breath or chest pain.
No injury.
He does have a pacemaker to right chest.
I did review ultrasound which states there is a monophasic waveform of the right arm veins raising the possibility for more proximal stenosis. This could be because either by extrinsic compression, intrinsic luminal narrowing or a more proximal
thrombus. The right internal jugular subclavian axillary brachial basilic and cephalic veins are patent.
Past History
Past History
ED Past Medical History: Arrthythmia and Valvular disease
ED Past Surgical History: Cardiac
Social History
Tobacco: Non-smoker
Alcohol: Occasional
Drug: None
Personal:
Living: with family
Employment: Retired
Phy Exam
General Physical Exam
General Presentation: no apparent distress
General age: appears stated age
General Skin: warm and dry
General Habitus: normal
General Mental: alert
General Hydration: appears well hydrated
Cardiovascular Exam
Cardiovascular Exam: regular rate/rhythm, no murmur and normal peripheral pulses
Pulmonary Exam
Pulmonary Exam: lungs clear, no respiratory distress and other (+ pacemaker to right chest )
Neurological Exam
Neurological Exam: alert and oriented x3
Musculoskeletal Exam
Musculoskeletal Exam: other (mild swelling to right upper arm, mild scattered ecchymosis to right upper arm + strong pulses and intact distal sensation )
Skin Exam
Skin Exam: normal color and warm/dry
Psychiatric Exam
Psychiatric Exam: normal mood/affect
Course
Orders/Labs/Results
Orders:
Orders
08/23/25 14:00
IV Insert/Care/Rem.- Treatment PRN
08/23/25 14:14
Complete Blood Count/With Diff Urgent
Comprehensive Metabolic Panel Urgent
Abnormal Lab Results
08/23/25
14:14
RBC 4.13 L 10^6/uL
(4.70-6.10)
MCV 97.3 H fL
(80.0-94.0)
MCH 32.4 H pg
(27.0-31.0)
Monocytes % 10.3 H %
(1.7-9.3)
BUN 24 H mg/dl
(9-20)
08/23/25 14:14
08/23/25 14:14
Vital Signs
Initial and Last Documented VS:
Initial Vital Signs
Temp Pulse Resp BP Pulse Ox
98.2 F 66 18 150/94 97
08/23/25 11:16 08/23/25 11:16 08/23/25 11:16 08/23/25 11:16 08/23/25 11:16
Last Documented Vital Signs
Temp Pulse Resp BP Pulse Ox
98.2 F 61 18 156/98 97
08/23/25 11:16 08/23/25 15:30 08/23/25 15:30 08/23/25 15:30 08/23/25 15:30
MDM/Problems Addressed
Differential Diagnosis Includes:
Not limited to clot/DVT
MDM/Problems Addressed:
Patient will patient is a 74-year-old male status post TAVR pacemaker on Eliquis has not missed a dose presents with swelling of his right arm for the past 2 weeks with increasing vein he. He had an outpatient ultrasound today which does show
concerns for proximal stenosis. I did speak with vascular surgery on-call. Patient's pacemaker is on his right side. This pacemaker was initially placed Nov 2024.
He denies any shortness of breath. Again he has not missed an Eliquis dose.
Vascular surgery does recommend admission
Chronic conditions affecting care:
On Eliquis, pacemaker/TAVR
*Pulse Oximetry
SaO2: 97
Oxygen Mode of Delivery: Room air
Patient hypoxic: no
*Critical Care Note
Total Time (30-74mins, 75-104mins- exclusive of procedures): Not Applicable
Patient Management
Discussion with other providers: Commercial Sales Manager (vascular surg DR Horta )
ED Attending Note
-
Portions of this chart may have been created with voice recognition software.� Occasional wrong word or��sound alike� substitutions may have occurred due to the inherent limitations of voice recognition software.
Discharge Plan
Departure
Patient Disposition: Admit
Date of Disposition: 08/23/25
Time of Disposition: 14:39
Presentation/result/management discussed w/ accepting MD/DO: Hospitalist
Patient with high blood pressure during this ER visit?: Yes
Condition: Fair
Covid-19: Not Applicable
Discharge Problem:
right arm swelling
Prescriptions:
No Action
atorvastatin 40 mg tablet
40 mg PO DAILY Qty: 90 3RF
Eliquis 5 mg tablet
5 mg PO BID Qty: 60 0RF
Rx Instructions:
resume on 11/07/24
ramipril 5 mg Capsule
5 mg PO BID Qty: 60 5RF
Theragen Tablet
1 tab PO DAILY
metoprolol succinate 25 mg tablet extended release 24 hr
25 mg PO BID
Referrals:
Abiodun Xiong I. DO [Family Provider, Internal Medicine]
Interventions
Interventions:
*Risk Screen - Suicide Last Done: 08/23/25 11:10
*General Assessment Last Done: 08/23/25 12:39
*Neglect/Abuse Screening Last Done: 08/23/25 12:39
*ED- Fall Risk Assessment Last Done: 08/23/25 12:39
*ED COVID-19 Vaccine History Last Done: 08/23/25 12:39
*ED Influenza Vaccine History Last Done: 08/23/25 12:39
Discharge Date and Time
Print Language: LATVIAN
[2025-08-23 14:25] LABS: Hematocrit 40.2 % (39.0-52.0); Hemoglobin 13.4 g/dL (13.0-18.0); Mean Corp Hgb Conc. 33.3 g/dL (33.0-37.0); Mean Corpuscular Volume 97.3 fL (80.0-94.0); Nucleated Red Blood Cells % 0 % (-); Platelet Count 155 10^3/uL (130-400); Red Cell Dist. Width 12.9 % (11.5-14.5)
[2025-08-23 14:38] LABS: ALT (SGPT) 25 U/L (0-50); AST (SGOT) 24 U/L (17-59); Albumin 4.3 g/dl (3.5-5.0); Alkaline Phosphatase 78 U/L (38-126); Blood Urea Nitrogen 24 mg/dl (9-20); Calcium 9.5 mg/dl (8.4-10.2); Carbon Dioxide 30 mmol/L (22-30); Chloride 106 mmol/L (98-107); Estimated Creatinine Clearance 81 ml/min; Glucose 94 mg/dl (70-99); Potassium 4.6 mmol/L (3.5-5.1); Sodium 138 mmol/L (135-145); Total Protein 6.8 g/dl (6.3-8.2); eGFR > 60.00
--- NOTE | 2025-08-23 15:22 | HPS.HSE ---
Addendum entered and electronically signed by Bradley Gardiner MD 08/23/25 16:24:
This is an addendum to H&P written by Nicolasa Watkins on 08/23/2025. �Patient seen and examined independently with RESIDENT INSPECTOR.
74-year-old male past medical history of complete heart block status post dual-chamber Medtronic pacemaker on November 27, severe aortic stenosis status post TAVR complicated by epigastric artery repair with vascular surgery, paroxysmal atrial
fibrillation on Eliquis, hypertension, hyperlipidemia, vocal cord cancer, depression, presenting with abnormal ultrasound. �For the past 2 weeks he noticed increased discoloration and swelling of the right upper extremity. �He went to see primary
care physician and had ultrasound performed and was told to come to the emergency room.
Ultrasound showed monophasic waveform of the right arm veins raising the possibility of more proximal stenosis because by extrinsic compression, intrinsic luminal narrowing or more proximal thrombus.
Vital signs show blood pressure 150-180 systolic.
Labs unremarkable.
Vascular surgery�consulted concern for proximal stenosis of the subclavian vein possibly from scarring or thrombosis from pacemaker leads. Recommend elevating arm, observation and continue Eliquis for now.�
Original Note:
Family Physician
-
Family Physician: Abiodun Xiong
Chief Complaint
-
abnormal ultrasound
History of Present Illness
Patient is a 74-year-old male with past medical history significant for hypertension, hypercholesterolemia, paroxysmal atrial fibrillation, depression and nonrheumatic aortic valve stenosis who presented to [facility] ED for evaluation of abnormal
ultrasound. Patient was seen yesterday by primary provider for right upper extremity discoloration and swelling proximally. Primary provider ordered an RUE ultrasound. Patient states while at ultrasound today he was instructed to come to the ED for
further testing. Patient denies any numbness, tingling, discoloration or swelling to distal right upper extremity.
Medical History
Past Medical History
Past Medical History: Reports Other
Additional Past Medical History:
hypertension
hypercholesterolemia
paroxysmal atrial fibrillation
depression
nonrheumatic aortic valve stenosis
Past Surgical History: Reports Other
Additional Past Surgical History:
tonsillectomy
vocal chord bx
pacemaker placement
TAVR
Social History
Tobacco: Former Smoker
Alcohol: Daily (glass or two of wine )
Personal:
Living: With Family
Family History
Family History: Not pertinent
Allergies / Home Medications
Allergies reflects when Allergies were last updated in [facility].
Home Medications with original date entered in [facility]
Allergy/Medication List:
Allergies
Allergy/AdvReac Type Severity Reaction Status Date / Time
No Known Allergies Allergy Verified 08/23/25 11:17
Home Medications
apixaban 5 mg tablet (Eliquis) 5 mg PO BID Blood clot prevention/tx #60 tabs 11/06/24
atorvastatin 40 mg tablet 40 mg PO DAILY High cholesterol #90 tabs 11/06/24
ramipril 5 mg capsule 5 mg PO BID Blood pressure #60 caps 11/26/24
metoprolol succinate 25 mg tablet,extended release 24 hr 25 mg PO BID 08/23/25
therapeutic multivitamin 1 tab PO DAILY 08/23/25
Review of Systems
-
History Source: Patient
Constitutional: Denies Fever or Chills
EENT: Denies Sore Throat
Respiratory: Denies Cough, Hemoptysis or Trouble Breathing
Cardiac: Denies Chest Pain, Diaphoresis or Palpitations
Abdomen/GI: Denies Abdominal Pain, Nausea, Vomiting or Diarrhea
: Denies Dysuria, Frequency or Urgency
Musculoskeletal: Reports Other (Right upper extremity proximal decolorization and swelling )
Skin: Denies Rash
Neurological: Denies Dizzy, Headache, Weakness or Numbness
Endocrine: Denies Polyuria or Polydipsia
Hematologic/Lymphatic: Denies Bleeding
Physical Exam
Vital Signs
Vital Signs
Temp Pulse Resp BP Pulse Ox
98.2 F 66 18 166/92 96
08/23/25 11:16 08/23/25 11:16 08/23/25 11:16 08/23/25 14:38 08/23/25 14:45
Physical Exam
General: Well Developed, Well Nourished, No Apparent Distress, Comfortable, Conversant and Obese
HEENT: NormoCephalic, Moist mucous membranes, Nose Appears Normal and Ears Appear Normal
Respiratory: Clear and Non Labored Respirations
Cardiac: S1/S2 and Regular Rhythm; No Murmur
GI: Soft, Non Tender, Non Distended and Normal Bowel Sounds
Musculoskeletal: No Clubbing, No Cyanosis, No Edema and Other (right proximal upper extremity with mild discoloration and mild edema )
Skin: Warm and IV/Catheter Site
Neuro: Awake and AO x 3
Hematologic/Lymphatic: No Lymphadenopathy
Psych: Calm and Intact Judgment/Insight
Laboratory Results
-
08/23/25 14:14
08/23/25 14:14
Laboratory Results
Total Bilirubin 0.6 mg/dl (0.2-1.3) 08/23/25 14:14
AST 24 U/L (17-59) 08/23/25 14:14
ALT 25 U/L (0-50) 08/23/25 14:14
Alkaline Phosphatase 78 U/L (38-126) 08/23/25 14:14
Data Reviewed
-
Ultrasound: Report Reviewed by me (RUE US: The right internal jugular, subclavian, axillary, brachial, basilic, and cephalic veins are patent. There is a monophasic waveform of the right arm veins raising the possibility for a more proximal
stenosis. This could be caused by extrinsic compression, intrinsic luminal narrowing, or a mo)
Lab Data: Labs Reviewed by me
Impression/Plan
-
IMPRESSION/PLAN:
#Right proximal upper extremity edema and decolorization
RUE US: The right internal jugular, subclavian, axillary, brachial, basilic, and cephalic veins are patent.
There is a monophasic waveform of the right arm veins raising the possibility for a more proximal stenosis. This could be caused by extrinsic compression, intrinsic luminal narrowing,
or a more proximal thrombus.
- Admit to med/surg
- Consult Vascular Surgery
- Elevate arm
- Gently AMRIK Wrap arm
#hypertension
- continue metoprolol
#hypercholesterolemia
- continue atorvastatin
#paroxysmal atrial fibrillation
- continue metoprolol and Eliquis
#depression
#nonrheumatic aortic valve stenosis
s/p TAVR
Code status: full code
DVT prophylaxis: Eliquis
--- NOTE | 2025-08-23 16:15 | EDCM ---
CM reviewed chart and met with pt bedside in ED. Lives with his in 2 story home, 3 [address].
Independent in ADLs, personal care and ambulation at baseline. No assistive devices, no DME in home.
WRIGHT reviewed and signed, copy left with pt.
Confirms prescription coverage.
No hx VN or SNF
PCP: Abiodun Xiong
Pharmacy: [facility]
Anticipate discharge home, CM will continue to follow for any discharge planning needs.
[2025-08-23] MEDS: ELIQUIS 5 MG PO (20:10)
[2025-08-23] MEDS: ALTACE 5 MG PO (20:11)
[2025-08-23] MEDS: TOPROL XL 25 MG PO (20:11)
--- NOTE | 2025-08-24 02:20 | DOWNTIME ---
There was a What's Trending Client Senior Counsel Commercial Downtime on 08/24/2025 from 0100 to 08/24/2025 at 0215. Downtime documentation of patient's care, including medication administrations, has been reconciled in the electronic record per guidelines. Refer to the
patient's paper chart under the miscellaneous tab to see printed paper medication records and downtime forms.
[2025-08-24 07:35] VITALS: BP 156/89
--- NOTE | 2025-08-24 07:40 | W.PN.HOSP.TC ---
Today's Communication/Plan
-
Discharge today
Assessment / Plan
Assessment / Plan
Physical Exam
General: Not in acute distress
HEENT: Normocephalic, Moist mucous membranes
Respiratory: Clear to Auscultation Bilaterally
Cardiac: S1/S2 and Regular Rhythm
GI: Soft, Non Tender, Non Distended and Normal Bowel Sounds
Musculoskeletal: No Cyanosis, No Edema. RUE with good radial pulse, good capillary refill on all digits of RUE, RUE is soft, no significant erythema, but mild discoloration present
Skin: Warm and IV/Catheter Site
Neuro: Awake and AO x 3
Hematologic/Lymphatic: No Lymphadenopathy
Psych: Calm and Intact Judgment/Insight
Assessment/Plan
74-year-old male past medical history of complete heart block status post dual-chamber Medtr[employer] pacemaker on November 27, severe aortic stenosis status post TAVR complicated by epigastric artery repair with vascular surgery, paroxysmal atrial
fibrillation on Eliquis, hypertension, hyperlipidemia, vocal cord cancer, depression, presented to [facility] ER with abnormal ultrasound. For the ~2 weeks prior to presentation, he noticed increased discoloration and swelling of the right upper
extremity. On 08/22/25, patient went to see his primary care physician, had ultrasound performed and was told to come to the emergency room. Ultrasound showed monophasic waveform of the right arm veins raising the possibility of more proximal
stenosis because by extrinsic compression, intrinsic luminal narrowing or more proximal thrombus. Patient denied any numbness, tingling, discoloration or swelling to distal right upper extremity. Initial vital signs around the time of admission
showed blood pressure 150-180 mmHg systolic. Initial labs were unremarkable. At the time of admission, vascular surgery was consulted due to concern for proximal stenosis of the subclavian vein possibly from scarring or thrombosis from pacemaker
leads. Vascular surgery recommended elevating arm, observation and continue Eliquis for now.
#Right proximal upper extremity edema and decolorization -- very commonly scarring of the vein around pacemaker leads
- Consult Vascular Surgery
- Compression sleeve when exercising with the right arm
- Per vascular surgery, there is nothing really concerning; likely just some venous congestion secondary to pacemaker leads; recommended a CT venogram of the chest on an outpatient basis
#Hypertension
- Continue metoprolol
#Hypercholesterolemia
- Continue atorvastatin
#Paroxysmal atrial fibrillation
- Continue metoprolol and Eliquis
#depression
#nonrheumatic aortic valve stenosis
s/p TAVR
Code status: full code
DVT prophylaxis: Eliquis
More than 30 minutes spent in discharge including
Final examination of the patient
Summarizing hospital stay
Instructions for continuing care to all relevant caregivers
Preparation of discharge records, prescriptions, and referral forms
Total time spent (in minutes): 41
Anticipated Discharge: Today
Subjective/Interval History
-
Date of Service: August 24, 2025
Patient was seen and examined. He reported feeling okay, he denied any numbness or tingling in his right arm, he agrees that he can go home today.
Objective Data
-
Vital Signs:
Vital Signs
Temp Pulse Resp BP Pulse Ox
98.4 F 64 14 156/90 95
08/23/25 23:04 08/23/25 23:04 08/23/25 23:04 08/23/25 23:04 08/23/25 23:04
[2025-08-24] MEDS: ALTACE 5 MG PO (08:31)
[2025-08-24] MEDS: TOPROL XL 25 MG PO (08:32)
[2025-08-24] MEDS: THERAGRAN 1 TABLET PO (08:32)
[2025-08-24] MEDS: ELIQUIS 5 MG PO (08:32)
[2025-08-24] MEDS: LIPITOR 40 MG PO (08:32)
--- NOTE | 2025-08-24 10:28 | CON.VAS ---
Consultation
Consultation Request
Date/Time Consultation Performed: 08/24/25 1015
Requesting Provider: Hospitalist
Performing Provider: MORTEZA AcostaC for Bandar Oropeza M.D., MD
Reason for Consultation: Right upper extremity edema with discoloration
Medical History
-
Chief Complaint: Right upper extremity edema with discoloration
History of Present Illness:
This is a 74-year-old male with significant past medical history significant for hypertension, hypercholesterolemia, paroxysmal atrial fibrillation, depression and nonrheumatic aortic valve stenosis who presented to [facility] ED on 08/23/2025 for
evaluation following abnormal ultrasound. Patient endorses experiencing recent right upper extremity discoloration, which fluctuates, with a more bluish tinge. He saw his PCP who ordered a right upper extremity ultrasound and following results he
was instructed to come to the ED. Patient denies any numbness, tingling, severe swelling of right upper extremity. He has a history of right subclavian vein access for pacemaker placement in November of this year. Patient is without complaints to
the arm. Just the discoloration he noted. Right upper extremity ultrasound demonstrating monophasic waveform in the right arm veins raising the possibility for a more proximal stenosis. No DVT seen.
Past Medical History
Past Medical History: Arrhythmias (paroxysmal atrial fibrillation), HTN, Hypercholesterolemia and Psychiatric (depression)
Past Surgical History: Other (Focal cord biopsy, permanent pacemaker, TAVR)
Social History
Tobacco: Former Smoker
Alcohol: Daily
Personal:
Living: With Family
Allergies / Home Medications
Allergy/AdvReac Type Severity Reaction Status Date / Time
No Known Allergies Allergy Verified 08/23/25 11:17
�Medication �Instructions �Recorded �Confirmed �Type
apixaban 5 mg tablet (Eliquis) 5 mg PO BID Blood clot 11/06/24 08/23/25 Rx
prevention/tx #60 tabs
atorvastatin 40 mg tablet 40 mg PO DAILY High cholesterol 11/06/24 08/23/25 Rx
#90 tabs
ramipril 5 mg capsule 5 mg PO BID Blood pressure #60 caps 11/26/24 08/23/25 Rx
metoprolol succinate 25 mg 25 mg PO BID 08/23/25 08/23/25 History
tablet,extended release 24 hr
therapeutic multivitamin 1 tab PO DAILY 08/23/25 08/23/25 History
Review of Systems
-
History Source: Patient
Constitutional: Reports No Symptoms
EENT: Reports No Symptoms
Respiratory: Reports No Symptoms
Cardiac: Reports No Symptoms
Abdomen/GI: Reports No Symptoms
: Reports No Symptoms
Musculoskeletal: Reports Other (Intermittent right upper extremity discoloration with occasional mild swelling)
Skin: Reports No Symptoms
Neurological: Reports No Symptoms
Endocrine: Reports No Symptoms
Physical Exam
Vital Signs
Temp Pulse Resp BP Pulse Ox
98.0 F 62 16 156/89 94
08/24/25 07:35 08/24/25 08:32 08/24/25 07:35 08/24/25 08:32 08/24/25 07:35
Lab Results
08/23/25 14:14
08/23/25 14:14
Physical Exam
General: No Apparent Distress and Comfortable
HEENT: Normocephalic, Anicteric and Atraumatic
Respiratory: Non Labored Respirations
Cardiac: Negative JVD
GI: Soft and Non Tender
Skin: Other (There is no edema at right upper extremity. Upper and forearm are both soft. Compartments all soft. No phlegmasia. Hand is pink and warm. Palpable radial pulse at right upper extremity.)
Neuro: AO x 3
Assessment / Plan
-
Assessment: Suspect scarring of the vein around pacemaker leads.
Plan:
Patient was seen and examined at bedside with Dr. Bandar Oropeza who reviewed results and central venous stenosis. Discussed limited invasive options (angioplasty is an option but recoil is significant, and stenting would not be ideal in the setting of
pacemaker leads in place). In addition his symptoms are minimal. He does have discoloration. Has no pain or swelling. Therefore would recommend conservative management. Discussed this all with the patient. Dr. Bandar Oropeza M.D. zina diagrams to
facilitate his understanding. Discussed with him use of a compression sleeve when he is exercising with the arm. Discussed that for completeness sake would favor CT scan imaging to rule out any chest mass that would be compressive or other
findings such as a central DVT that may warrant alternative treatment. However, Dr. Oropeza recommends study to be done as an outpatient as his symptoms are minimal, and suspicion for such findings are low in the setting of pacemaker leads in place
which is the most likely scenario. Discussed with hospitalist as well.
Follow-up and instructions for scheduling outpatient CT placed in discharge instructions.
--- NOTE | 2025-08-24 10:29 | W.PN.UPDATE ---
Update Note
Progress Note Update
Seen and examined with BUILDING SERVICES TECHNICIAN. Full consultation to follow. 75-year-old male with history of hypertension, hypercholesterolemia, history of right subclavian vein access for pacemaker placement in November of this year. More recently had noted
discoloration of his right upper extremity. No significant swelling. No significant pain. Was referred by his primary care to the emergency room. Ultrasound was performed. Admitted for evaluation. Patient is without complaints to the arm.
Just the discoloration he noted. On exam/his right upper extremity is soft. There is no edema. Upper and forearm are both soft. Compartments all soft. No phlegmasia. Hand is pink and warm. Palpable radial pulse.
Duplex reviewed. No DVT seen. Dampened waveforms suggestive of proximal stenosis.
Plan/ Discussed findings with patient. Discussed very commonly scarring of the vein around pacemaker leads. Results and central venous stenosis. Discussed limited invasive options (angioplasty is an option but recoil is significant, and stenting
would not be ideal in the setting of pacemaker leads in place). In addition his symptoms are minimal. He does have discoloration. Has no pain or swelling. Therefore would recommend conservative management. Discussed this all with the patient.
Christiano diagrams to facilitate his understanding. Discussed with him use of a compression sleeve when he is exercising with the arm. Discussed that for completeness sake would favor CT scan imaging to rule out any chest mass that would be compressive
or other findings such as a central DVT that may warrant alternative treatment. However I think this can be done as an outpatient as his symptoms are minimal, and suspicion for such findings are low in the setting of pacemaker leads in place which
is the most likely scenario. Discussed with hospitalist as well.
--- NOTE | 2025-08-24 12:58 | W.DCSUMMARY ---
Discharge Summary
Discharge Data
Date of Admission: 08/23/25
Date of Discharge: 08/24/25
Total time spent discharging patient (in min): 41
-
Pending Results: No
Hospital Course
74 y/o male with past medical history of complete heart block status post dual-chamber Medtr[employer] pacemaker on November 27, 2024, severe aortic stenosis status post TAVR complicated by epigastric artery repair with vascular surgery, paroxysmal atrial
fibrillation on Eliquis, hypertension, hyperlipidemia, vocal cord cancer, depression, presented with abnormal ultrasound. For the 2 weeks prior to presentation, he noticed increased discoloration and swelling of the right upper extremity. He went to
see his primary care physician and had ultrasound performed and was told to come to the emergency room. Ultrasound showed as per radiologist's report: monophasic waveform of the right arm veins raising the possibility of more proximal stenosis
because by extrinsic compression, intrinsic luminal narrowing or more proximal thrombus. Vascular surgery was consulted at the time of admission, for concern for proximal stenosis of the subclavian vein possibly from scarring or thrombosis from
pacemaker leads.
In the patient's right upper extremity, he had no significant swelling, no significant pain, compartments were all soft, patient's right hand was pink and warm and the right upper extremity had a palpable radial pulse.Vascular surgery mentioned that
it was very commonly scarring of the vein around pacemaker leads, and recommended conservative management. Patient was advised to use of a compression sleeve when exercising with the right arm. Vascular Surgery recommended outpatient CT Chest with
venogram to rule out any chest mass that would be compressive or other findings such as a central DVT that may warrant alternative treatment -- suspicion for those other such findings were low in the setting of pacemaker leads in place which is the
most likely scenario. Patient was doing well and stable for discharge.
Discharge Plan
-
Patient Disposition: Home (Routine Discharge)
Discharge Diagnosis/Procedures: History of right subclavian vein access for pacemaker placement in November 2024
Right proximal upper extremity edema and decolorization -- very commonly scarring of the vein/venous congestion around pacemaker leads
Hypertension
Hypercholesterolemia
Paroxysmal atrial fibrillation
Depression
Nonrheumatic aortic valve stenosis status post TAVR
Condition: Good
Diet: Low Fat, Low Cholesterol and Low Sodium
Activity: Other activity
Additional Activity: Compression sleeve when exercising with the right arm
Others Tests: Please call central scheduling at [phone] venogram, this test must be done prior to your follow-up with Dr. Bandar Oropeza M.D.. The prescription for the CT has been sent electronically.
Activity Restrictions/Additional Instructions:
As discussed by vascular surgeon, you should get CT venogram of the chest on an outpatient basis to rule out anything else that may be causing your right arm problems.
Referrals:
Abiodun Xiong I., DO [Family Provider, Internal Medicine] - in less than 1 week
Referral Note: Hospitalization Follow-Up
Bandar Oropeza MD [Active, Vascular Surgery] - 10/04/25 10:00 am
Prescriptions:
Continued
atorvastatin 40 mg tablet
40 mg PO DAILY Qty: 90 3RF
Eliquis 5 mg tablet
5 mg PO BID Qty: 60 0RF
Rx Instructions:
resume on 11/07/24
ramipril 5 mg Capsule
5 mg PO BID Qty: 60 5RF
therapeutic multivitamin Tablet
1 tab PO DAILY
metoprolol succinate 25 mg tablet extended release 24 hr
25 mg PO BID
Discharge Orders:
Discharge Patient (As Directed); Ordered 08/24/25
Ordered By: Heron Valiente
Discharge Date and Time
Discharge Date/Time: 08/24/25 13:45
Print Language: URDU
[2025-08-24 13:16] VITALS: BP 154/97
--- NOTE | 2025-08-24 13:56 | CM ---
Patient has been medically cleared for discharge to home with no additional skilled services. Patient has arranged for transport home.
== END 2025-08-24 13:45 | disposition home or self-care (01) ==
LOC: 1 ACUTE 16:19
PROVIDERS: Nurse Practitioner; ADMITTING PHYSICIAN Hospitalist; ATTENDING PHYSICIAN Hospitalist; CONSULT PHYSICIAN Surgery Vascular Surgery; EMERGENCY PHYSICIAN Student in an Organized Health Care Education/Training Program; FAMILY PHYSICIAN Internal Medicine
DX: I87.1 Compression of vein (principal); R22.31 Localized swelling, mass and lump, right upper limb; Z95.2 Presence of prosthetic heart valve; Z95.0 Presence of cardiac pacemaker; I10 Essential (primary) hypertension; I48.0 Paroxysmal atrial fibrillation; E78.00 Pure hypercholesterolemia, unspecified; Z79.899 Other long term (current) drug therapy; Z87.891 Personal history of nicotine dependence; Z79.01 Long term (current) use of anticoagulants; Z85.21 Personal history of malignant neoplasm of larynx; F32.A Depression, unspecified; I35.0 Nonrheumatic aortic (valve) stenosis
CPT/HCPCS: 80053; 85025; 93971; 99284; G0378

== ENCOUNTER → 2025-09-08 08:43 | Outpatient (REF) | payer MEDICARE, OTHER, SELFPAY | LOC: RAD 08:43 | PROVIDERS: ATTENDING PHYSICIAN Surgery Vascular Surgery; FAMILY PHYSICIAN Internal Medicine | DX: I87.1 Compression of vein (principal) | CPT/HCPCS: 71275; Q9967 ==